=== PATIENT | male | born 1960 | race Caucasian/White ===

== ENCOUNTER 2017-08-09 18:02 | Emergency (ER) | payer OTHER ==
[~2017-08-09] VITALS: Ht 172.7 cm; Wt 88.6 kg
[~2017-08-09 18:02] MED LIST: ALPRAZOLAM0.5 MG PO; AMITRIPTYLIN50 MG PO; CEPHALEXIN500 MG PO; COUMADIN3 MG PO; FLEXERIL OR; HYDROCHLOROT12.5 M1 PO; HYDROCO/APAP1 T12 PO; LIPITOR10 MG PO; LIPITOR20 MG OR; LISINOPRIL20 MG PO; LORTAB 10 PO; LORTAB 5 OR; MEDDOSEPAK OR; MIRTAZAPINE15 MG PO; NAPROSYN375 MG PO; NORCO1 TAB OR; PAROXETINE10 MG PO; PAXIL20 MG OR; PAXIL30 MG PO; PAXIL40 MG OR; PERCOCET 5/325M1 TAB OR; PRAVASTATIN40 MG OR; PROAIR HFA IN; RISPERDAL0.5 MG PO; SEROQUEL100 MG PO; SEROQUEL50 MG OR; SOMA350 MG OR; TEGRETOL200 MG PO; ZARONTIN250 MG PO; ZESTRIL20 MG OR
[2017-08-09] MEDS ORDERED: BUPROPION150 M3 PO (18:36)
[2017-08-09] MEDS ORDERED: BUPROPION300 MG PO (18:36)
[2017-08-09] MEDS ORDERED: VISTARIL25 MG PO (18:43)
[2017-08-09] MEDS ORDERED: ZOLPIDEM5 M1 PO (18:44)
[2017-08-09 18:46] LABS: HEMATOCRIT 39.8 % (39.0-50.0); HEMOGLOBIN 13.7 g/dl (14.0-18.0); IMMATURE GRANULOCYTES 0.4 % (0.0-1.0); MEAN CELL VOLUME 91.7 fL CALC (80.0-100.0); MEAN CORPUSCULAR HGB 31.6 pG CALC (26.0-32.0); MEAN CORPUSCULAR HGB CONC 34.4 g/L CALC (32.0-36.0); NEUT# 4.36 thou/uL (1.82-7.42); RED BLOOD COUNT 4.34 mill/uL (4.70-6.10); RED CELL DISTRI WIDTH 12.6 % (11.5-15.5)
[2017-08-09 19:11] LABS: ALBUMIN 4.3 g/dL (3.2-5.0); ALKALINE PHOSPHATASE 88 u/l (38-126); ANION GAP 19 (6-22 (CALC)); BILIRUBIN, TOTAL 0.3 mg/dL (0.0-1.4); BUN 11 mg/dL (9-20); BUN/CREATININE RATIO 10 (12-20 (CALC)); CARBON DIOXIDE 24 mmol/l (22-30); CHLORIDE 103 mmol/l (95-108); CREATININE 1.1 mg/dL (0.7-1.3); GFR > 60 ML/MIN (>=60 (CALC)); GFR FOR AFR.AMER. > 60 ML/MIN (>=60 (CALC)); POTASSIUM 4.2 mmol/l (3.5-5.1); SGOT/AST 20 u/l (17-59); SGPT/ALT 33 u/l (21-72); SODIUM 142 mmol/l (137-146); TOTAL PROTEIN 7.3 g/dL (6.3-8.2)
[2017-08-09 19:49] LABS: URINE BILIRUBIN - DIPSTICK NEGATIVE (NEGATIVE); URINE BLOOD DIPSTICK NEGATIVE (NEGATIVE); URINE CLARITY CLEAR; URINE COLOR YELLOW; URINE GLUCOSE - DIPSTICK NEGATIVE (NEGATIVE); URINE KETONE NEGATIVE (NEGATIVE); URINE LEUK ESTERASE NEGATIVE (Negative); URINE NITRITE - DIPSTICK NEGATIVE (Negative); URINE PROTEIN - DIPSTICK NEGATIVE (NEG-TRACE); URINE SPECIFIC GRAVITY <=1.005; URINE UROBILINOGEN - DIPSTICK 0.2 E.U./dL (0.2)
[2017-08-09 19:59] LABS: BARBITURATES NEGATIVE (NEGATIVE); COCAINE NEGATIVE (NEGATIVE); METHADONE NEGATIVE (NEGATIVE); OXCYCODONE NEGATIVE (NEGATIVE); TETRAHYDROCANNABIONOL POSITIVE (NEGATIVE); TRICYLIC ANTIDEPRESSANTS NEGATIVE (NEGATIVE)
[2017-08-09] MEDS ORDERED: BACTROBAN TOP (20:13)
[2017-08-09 21:20] VITALS: BP 147/93
== END 2017-08-09 21:20 | disposition home or self-care (01) | DRG 101 ==
LOC: ED 18:02
DX: G40.909 Epilepsy, unspecified, not intractable, without status epilepticus (principal); F12.90 Cannabis use, unspecified, uncomplicated
CPT/HCPCS: J1953

== ENCOUNTER 2018-03-17 16:38 | Emergency (ER) | payer OTHER ==
[~2018-03-17] VITALS: Ht 172.7 cm; Wt 80.0 kg
[~2018-03-17 16:38] MED LIST changes: +BACTROBAN TOP; +BUPROPION150 M3 PO; +BUPROPION300 MG PO; +VISTARIL25 MG PO; +ZOLPIDEM5 M1 PO
[2018-03-17 17:35] LABS: HEMATOCRIT 36.4 % (39.0-50.0); HEMOGLOBIN 12.6 g/dl (14.0-18.0); IMMATURE GRANULOCYTES 1.3 % (0.0-5.0); MEAN CELL VOLUME 95.3 fL CALC (80.0-100.0); MEAN CORPUSCULAR HGB CONC 34.6 g/L CALC (32.0-36.0); NEUT# 4.84 thou/uL (1.82-7.42); RED BLOOD COUNT 3.82 mill/uL (4.70-6.10); RED CELL DISTRI WIDTH 15.2 % (11.5-15.5)
[2018-03-17 17:45] LABS: CREATININE 1.5 mg/dL (0.7-1.3); POTASSIUM 3.9 mmol/l (3.5-5.1)
[2018-03-17] MEDS ORDERED: BUPROPION150 M4 PO (17:47)
[2018-03-17] MEDS ORDERED: METHOCARBAMOL500 MG PO (17:49)
[2018-03-17] MEDS ORDERED: LOSARTAN POT25 MG PO (17:51)
[2018-03-17] MEDS ORDERED: HYDROXYZINE HCL10 MG PO (17:51)
[2018-03-17] MEDS ORDERED: NITROSTAT0.4 MG SL (17:52)
[2018-03-17] MEDS ORDERED: TEGRETOL PO (18:27)
[2018-03-17 18:45] VITALS: BP 100/66
[2018-03-18] MEDS ORDERED: LORTAB 5/3255 MG PO (03:56)
== END 2018-03-17 18:45 | disposition home or self-care (01) ==
LOC: ED 16:38
PROVIDERS: Family Medicine
DX: G40.909 Epilepsy, unspecified, not intractable, without status epilepticus (principal); T42.1X6A Underdosing of iminostilbenes, initial encounter; Z91.128 Patient's intentional underdosing of medication regimen for other reason

== ENCOUNTER 2018-03-18 03:06 | Emergency (ER) | payer OTHER ==
[~2018-03-18] VITALS: Ht 172.7 cm; Wt 70.0 kg
[~2018-03-18 03:06] MED LIST changes: +BUPROPION150 M4 PO; +HYDROXYZINE HCL10 MG PO; +LOSARTAN POT25 MG PO; +METHOCARBAMOL500 MG PO; +NITROSTAT0.4 MG SL; +TEGRETOL PO
[2018-03-18] MEDS ORDERED: LORTAB 5/3255 MG PO (03:56)
[2018-03-18 04:43] VITALS: BP 174/102
== END 2018-03-18 05:01 | disposition home or self-care (01) ==
LOC: ED 03:06
DX: G40.909 Epilepsy, unspecified, not intractable, without status epilepticus (principal); S42.291A Other displaced fracture of upper end of right humerus, initial encounter for closed fracture; T42.76XA Underdosing of unspecified antiepileptic and sedative-hypnotic drugs, initial encounter; X58.XXXA Exposure to other specified factors, initial encounter; Z91.128 Patient's intentional underdosing of medication regimen for other reason

== ENCOUNTER → 2018-05-17 | Outpatient (REF) | payer OTHER ==
[~2018-05-17] MED LIST changes: +LORTAB 5/3255 MG PO
== END | disposition home or self-care (01) ==
LOC: DI 10:37
PROVIDERS: ATTEND Family Medicine
DX: J44.0 Chronic obstructive pulmonary disease with (acute) lower respiratory infection (principal)

== ENCOUNTER 2018-12-31 15:40 | Emergency (ER) | payer OTHER ==
[~2018-12-31] VITALS: Ht 172.7 cm; Wt 75.0 kg
[2018-12-31 16:35] LABS: HEMATOCRIT 39.2 % (39.0-50.0); HEMOGLOBIN 13.4 g/dl (14.0-18.0); IMMATURE GRANULOCYTES 0.5 % (0.0-5.0); MEAN CELL VOLUME 90.7 fL CALC (80.0-100.0); MEAN CORPUSCULAR HGB CONC 34.2 g/L CALC (32.0-36.0); NEUT# 6.76 thou/uL (1.82-7.42); RED BLOOD COUNT 4.32 mill/uL (4.70-6.10); RED CELL DISTRI WIDTH 13.8 % (11.5-15.5)
[2018-12-31 17:24] LABS: ALKALINE PHOSPHATASE 104 u/l (38-126); ANION GAP 23 (6-22 (CALC)); BILIRUBIN, TOTAL 0.4 mg/dL (0.0-1.4); BUN 7 mg/dL (9-20); BUN/CREATININE RATIO 7 (12-20 (CALC)); CARBON DIOXIDE 21 mmol/l (22-30); CHLORIDE 100 mmol/l (95-108); CREATININE 1.1 mg/dL (0.7-1.3); GFR > 60 ML/MIN (>=60 (CALC)); GFR FOR AFR.AMER. > 60 ML/MIN (>=60 (CALC)); POTASSIUM 4.2 mmol/l (3.5-5.1); SGOT/AST 26 u/l (17-59); SODIUM 139 mmol/l (137-146); TOTAL PROTEIN 8.2 g/dL (6.3-8.2)
[2018-12-31 17:36] LABS: MYOGLOBIN 115 ng/mL (0 - 121)
[2018-12-31 17:36] LABS: URINE BILIRUBIN - DIPSTICK NEGATIVE (NEGATIVE); URINE BLOOD DIPSTICK NEGATIVE (NEGATIVE); URINE COLOR YELLOW; URINE GLUCOSE - DIPSTICK NEGATIVE (NEGATIVE); URINE KETONE NEGATIVE (NEGATIVE); URINE LEUK ESTERASE NEGATIVE (NEGATIVE); URINE NITRITE - DIPSTICK NEGATIVE (Negative); URINE PH 6.5 (4.5-8.0); URINE PROTEIN - DIPSTICK NEGATIVE (NEG-TRACE); URINE SPECIFIC GRAVITY 1.025; URINE UROBILINOGEN - DIPSTICK 0.2 E.U./dL (0.2)
[2018-12-31 18:07] LABS: BARBITURATES NEGATIVE (NEGATIVE); COCAINE NEGATIVE (NEGATIVE); METHADONE NEGATIVE (NEGATIVE); OXCYCODONE NEGATIVE (NEGATIVE); TETRAHYDROCANNABIONOL POSITIVE (NEGATIVE); TRICYLIC ANTIDEPRESSANTS NEGATIVE (NEGATIVE)
[2018-12-31 20:30] VITALS: BP 170/98
== END 2018-12-31 20:30 | disposition home or self-care (01) ==
LOC: ED 15:40
PROVIDERS: Emergency Medicine
DX: G40.909 Epilepsy, unspecified, not intractable, without status epilepticus (principal); I10 Essential (primary) hypertension; J44.9 Chronic obstructive pulmonary disease, unspecified

== ENCOUNTER 2018-12-31 20:42 | Emergency (ER) | payer OTHER ==
[~2018-12-31] VITALS: Ht 172.7 cm; Wt 60.0 kg
[2018-12-31 22:08] LABS: HEMATOCRIT 39.3 % (39.0-50.0); HEMOGLOBIN 13.2 g/dl (14.0-18.0); IMMATURE GRANULOCYTES 0.5 % (0.0-5.0); MEAN CELL VOLUME 93.6 fL CALC (80.0-100.0); MEAN CORPUSCULAR HGB 31.4 pG CALC (26.0-32.0); MEAN CORPUSCULAR HGB CONC 33.6 g/L CALC (32.0-36.0); NEUT# 9.74 thou/uL (1.82-7.42); RED BLOOD COUNT 4.2 mill/uL (4.70-6.10); RED CELL DISTRI WIDTH 14.1 % (11.5-15.5)
[2018-12-31 22:16] LABS: ALBUMIN 4.9 g/dL (3.2-5.0); ALKALINE PHOSPHATASE 92 u/l (38-126); BILIRUBIN, TOTAL 0.4 mg/dL (0.0-1.4); BUN 7 mg/dL (9-20); BUN/CREATININE RATIO 6 (12-20 (CALC)); CHLORIDE 98 mmol/l (95-108); CREATININE 1.2 mg/dL (0.7-1.3); GFR > 60 ML/MIN (>=60 (CALC)); GFR FOR AFR.AMER. > 60 ML/MIN (>=60 (CALC)); POTASSIUM 4.2 mmol/l (3.5-5.1); SGOT/AST 30 u/l (17-59); SODIUM 139 mmol/l (137-146); TOTAL PROTEIN 7.8 g/dL (6.3-8.2)
[2018-12-31 22:18] LABS: ANION GAP 30 (6-22 (CALC)); CARBON DIOXIDE 15 mmol/l (22-30)
[2019-01-01 01:08] VITALS: BP 126/76
== END 2019-01-01 01:08 | disposition short-term general hospital (02) ==
LOC: ED 20:42 → ED-I 21:20 → ED 01-01 01:08
PROVIDERS: Emergency Medicine
DX: G40.909 Epilepsy, unspecified, not intractable, without status epilepticus (principal); R41.82 Altered mental status, unspecified; I10 Essential (primary) hypertension; J44.9 Chronic obstructive pulmonary disease, unspecified
CPT/HCPCS: J1953

== ENCOUNTER 2019-01-05 10:31 | Emergency (ER) | payer OTHER ==
[~2019-01-05] VITALS: Ht 172.7 cm; Wt 82.0 kg
[2019-01-05 11:31] LABS: HEMATOCRIT 39.2 % (39.0-50.0); HEMOGLOBIN 13.3 g/dl (14.0-18.0); IMMATURE GRANULOCYTES 0.4 % (0.0-5.0); MEAN CELL VOLUME 91.6 fL CALC (80.0-100.0); MEAN CORPUSCULAR HGB 31.1 pG CALC (26.0-32.0); MEAN CORPUSCULAR HGB CONC 33.9 g/L CALC (32.0-36.0); NEUT# 2.3 thou/uL (1.82-7.42); RED BLOOD COUNT 4.28 mill/uL (4.70-6.10); RED CELL DISTRI WIDTH 13.7 % (11.5-15.5)
[2019-01-05 11:38] LABS: ALBUMIN 4.6 g/dL (3.2-5.0); ALKALINE PHOSPHATASE 98 u/l (38-126); ANION GAP 16 (6-22 (CALC)); BILIRUBIN, TOTAL 0.5 mg/dL (0.0-1.4); BUN 14 mg/dL (9-20); BUN/CREATININE RATIO 13 (12-20 (CALC)); CHLORIDE 105 mmol/l (95-108); CREATININE 1.1 mg/dL (0.7-1.3); GFR > 60 ML/MIN (>=60 (CALC)); GFR FOR AFR.AMER. > 60 ML/MIN (>=60 (CALC)); SGOT/AST 37 u/l (17-59); SODIUM 142 mmol/l (137-146); TOTAL PROTEIN 7.8 g/dL (6.3-8.2)
[2019-01-05 11:39] LABS: CARBON DIOXIDE 25 mmol/l (22-30)
[2019-01-05] MEDS ORDERED: TORADOL PO (11:51)
[2019-01-05] MEDS ORDERED: LOSARTAN POTAS100 MG PO (11:51)
[2019-01-05 11:56] VITALS: BP 142/99
== END 2019-01-05 12:02 | disposition home or self-care (01) ==
LOC: ED 10:31
PROVIDERS: Family Medicine
DX: R51 Headache (principal); I10 Essential (primary) hypertension; J44.9 Chronic obstructive pulmonary disease, unspecified; G40.909 Epilepsy, unspecified, not intractable, without status epilepticus

== ENCOUNTER 2019-05-02 | Emergency (ER) | payer OTHER ==
[~2019-05-02] MED LIST changes: +LOSARTAN POTAS100 MG PO; +TORADOL PO
[2019-05-02 10:37] LABS: HEMATOCRIT 38.5 % (39.0-50.0); IMMATURE GRANULOCYTES 0.6 % (0.0-5.0); MEAN CELL VOLUME 91.7 fL CALC (80.0-100.0); MEAN CORPUSCULAR HGB CONC 33.8 g/L CALC (32.0-36.0); NEUT# 7.64 thou/uL (1.82-7.42); RED BLOOD COUNT 4.2 mill/uL (4.70-6.10); RED CELL DISTRI WIDTH 13.6 % (11.5-15.5)
[2019-05-02] MEDS ORDERED: ABILIFY15 MG PO (11:17)
[2019-05-02 11:28] LABS: ALBUMIN 4.7 g/dL (3.2-5.0); ALKALINE PHOSPHATASE 96 u/l (38-126); ANION GAP 15 (6-22 (CALC)); BILIRUBIN, TOTAL 0.3 mg/dL (0.0-1.4); BUN 11 mg/dL (9-20); BUN/CREATININE RATIO 10 (12-20 (CALC)); CARBON DIOXIDE 22 mmol/l (22-30); CHLORIDE 106 mmol/l (95-108); CREATININE 1.1 mg/dL (0.7-1.3); GFR > 60 ML/MIN (>=60 (CALC)); GFR FOR AFR.AMER. > 60 ML/MIN (>=60 (CALC)); POTASSIUM 4.6 mmol/l (3.5-5.1); SGOT/AST 32 u/l (17-59); SODIUM 139 mmol/l (137-146); TOTAL PROTEIN 7.9 g/dL (6.3-8.2)
[2019-05-02 12:34] LABS: URINE BILIRUBIN - DIPSTICK NEGATIVE (NEGATIVE); URINE BLOOD DIPSTICK NEGATIVE (NEGATIVE); URINE COLOR YELLOW; URINE GLUCOSE - DIPSTICK NEGATIVE (NEGATIVE); URINE KETONE NEGATIVE (NEGATIVE); URINE LEUK ESTERASE NEGATIVE (NEGATIVE); URINE NITRITE - DIPSTICK NEGATIVE (Negative); URINE PROTEIN - DIPSTICK NEGATIVE (NEG-TRACE); URINE UROBILINOGEN - DIPSTICK 0.2 E.U./dL (0.2)
[2019-05-02 12:38] LABS: BARBITURATES NEGATIVE (NEGATIVE); COCAINE NEGATIVE (NEGATIVE); METHADONE NEGATIVE (NEGATIVE); OXCYCODONE NEGATIVE (NEGATIVE); TETRAHYDROCANNABIONOL POSITIVE (NEGATIVE); TRICYLIC ANTIDEPRESSANTS NEGATIVE (NEGATIVE)
[2019-05-02] MEDS ORDERED: TEGRETOL PO (12:55)
== END 2019-05-02 13:03 | disposition home or self-care (01) ==
PROVIDERS: Emergency Medicine
DX: G40.409 Other generalized epilepsy and epileptic syndromes, not intractable, without status epilepticus (principal); I10 Essential (primary) hypertension; J44.9 Chronic obstructive pulmonary disease, unspecified; T42.76XA Underdosing of unspecified antiepileptic and sedative-hypnotic drugs, initial encounter; Z91.128 Patient's intentional underdosing of medication regimen for other reason

== ENCOUNTER 2020-05-31 11:49 | Emergency (ER) | payer OTHER ==
[~2020-05-31] VITALS: Ht 172.7 cm; Wt 86.4 kg
[~2020-05-31 11:49] MED LIST changes: +ABILIFY15 MG PO
[2020-05-31 13:32] LABS: IMMATURE GRANULOCYTES 0.7 % (0.0-5.0); MEAN CORPUSCULAR HGB 30.7 pG CALC (26.0-32.0); MEAN CORPUSCULAR HGB CONC 33.4 g/dL CAL (32.0-36.0); NEUT# 11.51 thou/uL (1.82-7.42); RED BLOOD COUNT 5.14 mill/uL (4.70-6.10); RED CELL DISTRI WIDTH 12.7 % (11.5-15.5)
[2020-05-31 13:33] LABS: HEMATOCRIT 47.3 % (39.0-50.0); HEMOGLOBIN 15.8 g/dl (14.0-18.0)
[2020-05-31 14:00] LABS: ALKALINE PHOSPHATASE 95 u/l (38-126); ANION GAP 22 (6-22 (CALC)); BUN 11 mg/dL (9-20); BUN/CREATININE RATIO 8 (12-20 (CALC)); CARBON DIOXIDE 20 mmol/l (22-30); CHLORIDE 95 mmol/l (95-108); CREATININE 1.4 mg/dL (0.7-1.3); ETHYL ALCOHOL 0 mg/dl (0-30); GFR 52 ML/MIN (>=60 (CALC)); GFR FOR AFR.AMER. > 60 ML/MIN (>=60 (CALC)); LIPASE 64 u/l (23-300); POTASSIUM 4.4 mmol/l (3.5-5.1); SGOT/AST 45 u/l (17-59); SODIUM 133 mmol/l (137-146)
[2020-05-31 14:02] LABS: BILIRUBIN, TOTAL 0.8 mg/dL (0.0-1.4); TOTAL PROTEIN 9.6 g/dL (6.3-8.2)
[2020-05-31 14:03] LABS: ALBUMIN 5.7 g/dL (3.2-5.0)
[2020-05-31 14:55] LABS: URINE BILIRUBIN - DIPSTICK NEGATIVE (NEGATIVE); URINE BLOOD DIPSTICK NEGATIVE (NEGATIVE); URINE COLOR YELLOW; URINE GLUCOSE - DIPSTICK NEGATIVE (NEGATIVE); URINE KETONE NEGATIVE (NEGATIVE); URINE LEUK ESTERASE NEGATIVE (NEGATIVE); URINE PH 6.5 (4.5-8.0); URINE PROTEIN - DIPSTICK NEGATIVE (NEG-TRACE); URINE UROBILINOGEN - DIPSTICK 0.2 E.U./dL (0.2)
[2020-05-31 14:57] LABS: URINE NITRITE - DIPSTICK NEGATIVE (Negative)
[2020-05-31 16:58] VITALS: BP 126/61
== END 2020-05-31 16:59 | disposition short-term general hospital (02) ==
LOC: ED 11:49
PROVIDERS: Family Medicine
DX: G40.909 Epilepsy, unspecified, not intractable, without status epilepticus (principal); J44.1 Chronic obstructive pulmonary disease with (acute) exacerbation; E87.2 Acidosis; I10 Essential (primary) hypertension; F32.9 Major depressive disorder, single episode, unspecified; F41.9 Anxiety disorder, unspecified; Z20.822 Contact with and (suspected) exposure to COVID-19

== ENCOUNTER 2020-07-07 | Emergency (ER) | payer OTHER ==
[2020-07-07 16:14] LABS: MEAN CELL VOLUME 94.9 fL CALC (80.0-100.0); MEAN CORPUSCULAR HGB CONC 31.6 g/dL CAL (32.0-36.0); NEUT# 10.3 thou/uL (1.82-7.42); RED BLOOD COUNT 4.3 mill/uL (4.70-6.10); RED CELL DISTRI WIDTH 12.7 % (11.5-15.5); URINE BILIRUBIN - DIPSTICK NEGATIVE (NEGATIVE); URINE BLOOD DIPSTICK SMALL (NEGATIVE); URINE COLOR YELLOW; URINE GLUCOSE - DIPSTICK NEGATIVE (NEGATIVE); URINE KETONE NEGATIVE (NEGATIVE); URINE LEUK ESTERASE NEGATIVE (NEGATIVE); URINE PH 6.5 (4.5-8.0); URINE PROTEIN - DIPSTICK 100 mg/dL (NEG-TRACE); URINE SPECIFIC GRAVITY 1.025; URINE UROBILINOGEN - DIPSTICK 0.2 E.U./dL (0.2)
[2020-07-07 16:16] LABS: HEMATOCRIT 40.8 % (39.0-50.0); HEMOGLOBIN 12.9 g/dl (14.0-18.0)
[2020-07-07 16:17] LABS: IMMATURE GRANULOCYTES 6.7 % (0.0-5.0); URINE NITRITE - DIPSTICK NEGATIVE (Negative)
[2020-07-07 16:23] LABS: URINE RBC 0-2 RBC/hpf (0-5); URINE SPERM FEW hpf (NONE-RARE); URINE WBC 0-2 WBC/hpf (0-5)
[2020-07-07 16:34] LABS: BILIRUBIN, TOTAL 0.5 mg/dL (0.0-1.4); CREATININE 1.8 mg/dL (0.7-1.3); POTASSIUM 4.4 mmol/l (3.5-5.1)
[2020-07-07 16:35] LABS: ALBUMIN 4.3 g/dL (3.2-5.0); TOTAL PROTEIN 6.9 g/dL (6.3-8.2)
--- NOTE | 2020-07-09 13:36 | NUR ---
Patient's microbiological blood culture reports from 07/07/20 were faxed over to [facility] @ .
--- NOTE | 2020-07-10 15:35 | NUR ---
FAXED OVER FINAL BLOOD CULTURE REPORT TO [facility] AT [facility]. FAX # [phone].
== END 2020-07-07 18:05 | disposition short-term general hospital (02) ==
PROVIDERS: Emergency Medicine
DX: G40.919 Epilepsy, unspecified, intractable, without status epilepticus (principal); E87.2 Acidosis; I10 Essential (primary) hypertension; J44.9 Chronic obstructive pulmonary disease, unspecified; F32.9 Major depressive disorder, single episode, unspecified; F41.9 Anxiety disorder, unspecified; Z20.822 Contact with and (suspected) exposure to COVID-19
CPT/HCPCS: J1953; J2060

== ENCOUNTER 2020-12-26 14:44 | Emergency (ER) | payer OTHER ==
[~2020-12-26] VITALS: Ht 172.7 cm; Wt 71.8 kg
[2020-12-26] MEDS ORDERED: MIRTAZAPINE15 MG PO (15:13)
[2020-12-26] MEDS ORDERED: PRAVASTATIN20 MG PO (15:13)
[2020-12-26] MEDS ORDERED: RISPERIDONE2 MG PO (15:14)
[2020-12-26 15:15] LABS: HEMATOCRIT 41.6 % (39.0-50.0); HEMOGLOBIN 13.9 g/dl (14.0-18.0); IMMATURE GRANULOCYTES 0.1 % (0.0-5.0); MEAN CELL VOLUME 94.8 fL CALC (80.0-100.0); MEAN CORPUSCULAR HGB 31.7 pG CALC (26.0-32.0); MEAN CORPUSCULAR HGB CONC 33.4 g/dL CAL (32.0-36.0); NEUT# 5.22 thou/uL (1.82-7.42); RED BLOOD COUNT 4.39 mill/uL (4.70-6.10); RED CELL DISTRI WIDTH 13.5 % (11.5-15.5)
[2020-12-26] MEDS ORDERED: CARBAMAZEPIN200 MG PO (15:15)
[2020-12-26] MEDS ORDERED: SEROQUEL100 MG PO (15:16)
[2020-12-26] MEDS ORDERED: HYDROXYZ HCL25 MG PO (15:17)
[2020-12-26 15:27] LABS: URINE BILIRUBIN - DIPSTICK NEGATIVE (NEGATIVE); URINE BLOOD DIPSTICK NEGATIVE (NEGATIVE); URINE CLARITY CLEAR; URINE COLOR YELLOW; URINE GLUCOSE - DIPSTICK NEGATIVE (NEGATIVE); URINE KETONE NEGATIVE (NEGATIVE); URINE LEUK ESTERASE NEGATIVE (Negative); URINE NITRITE - DIPSTICK NEGATIVE (Negative); URINE PH 6.5 (4.5-8.0); URINE PROTEIN - DIPSTICK TRACE mg/dL (NEG-TRACE); URINE SPECIFIC GRAVITY 1.025; URINE UROBILINOGEN - DIPSTICK 0.2 E.U./dL (0.2)
[2020-12-26 15:28] LABS: ALBUMIN 4.2 g/dL (3.2-5.0); ALKALINE PHOSPHATASE 93 u/l (38-126); ANION GAP 22 (6-22 (CALC)); BILIRUBIN, TOTAL 0.5 mg/dL (0.0-1.4); BUN 11 mg/dL (9-20); BUN/CREATININE RATIO 10 (12-20 (CALC)); CARBON DIOXIDE 17 mmol/l (22-30); CHLORIDE 103 mmol/l (95-108); CREATININE 1.1 mg/dL (0.7-1.3); GFR > 60 ML/MIN (>=60 (CALC)); GFR FOR AFR.AMER. > 60 ML/MIN (>=60 (CALC)); SGOT/AST 29 u/l (17-59); SODIUM 138 mmol/l (137-146); TOTAL PROTEIN 7.5 g/dL (6.3-8.2)
[2020-12-26 15:35] LABS: POTASSIUM 3.7 mmol/l (3.5-5.1)
[2020-12-26 17:18] VITALS: BP 135/79
[2020-12-26] MEDS ORDERED: CARBAMAZEPIN200 M1 PO (17:20)
== END 2020-12-26 17:35 | disposition home or self-care (01) ==
LOC: ED 14:44
DX: G40.409 Other generalized epilepsy and epileptic syndromes, not intractable, without status epilepticus (principal); T42.1X6A Underdosing of iminostilbenes, initial encounter; I10 Essential (primary) hypertension; J44.9 Chronic obstructive pulmonary disease, unspecified; F32.A Depression, unspecified; F41.9 Anxiety disorder, unspecified; M54.50 Low back pain, unspecified; M54.2 Cervicalgia; G89.29 Other chronic pain; F17.200 Nicotine dependence, unspecified, uncomplicated; Z91.138 Patient's unintentional underdosing of medication regimen for other reason

== ENCOUNTER 2021-02-26 13:31 | Emergency (ER) | payer MEDICAID ==
[~2021-02-26] VITALS: Ht 172.7 cm; Wt 68.0 kg
[~2021-02-26 13:31] MED LIST changes: +CARBAMAZEPIN200 M1 PO; +CARBAMAZEPIN200 MG PO; +HYDROXYZ HCL25 MG PO; +PRAVASTATIN20 MG PO; +RISPERIDONE2 MG PO
[2021-02-26 14:09] LABS: HEMATOCRIT 41.6 % (39.0-50.0); HEMOGLOBIN 14.4 g/dl (14.0-18.0); IMMATURE GRANULOCYTES 0.4 % (0.0-5.0); MEAN CELL VOLUME 90.8 fL CALC (80.0-100.0); MEAN CORPUSCULAR HGB 31.4 pG CALC (26.0-32.0); MEAN CORPUSCULAR HGB CONC 34.6 g/dL CAL (32.0-36.0); NEUT# 5.95 thou/uL (1.82-7.42); RED BLOOD COUNT 4.58 mill/uL (4.70-6.10); RED CELL DISTRI WIDTH 13.2 % (11.5-15.5)
[2021-02-26 14:28] LABS: ALBUMIN 4.3 g/dL (3.2-5.0); ALKALINE PHOSPHATASE 99 u/l (38-126); ANION GAP 17 (6-22 (CALC)); BILIRUBIN, TOTAL 0.6 mg/dL (0.0-1.4); BUN 10 mg/dL (9-20); BUN/CREATININE RATIO 10 (12-20 (CALC)); CARBON DIOXIDE 22 mmol/l (22-30); CHLORIDE 106 mmol/l (95-108); GFR > 60 ML/MIN (>=60 (CALC)); GFR FOR AFR.AMER. > 60 ML/MIN (>=60 (CALC)); POTASSIUM 3.6 mmol/l (3.5-5.1); SGOT/AST 32 u/l (17-59); SODIUM 141 mmol/l (137-146); TOTAL PROTEIN 7.9 g/dL (6.3-8.2)
[2021-02-26 15:44] VITALS: BP 153/78
== END 2021-02-26 15:44 | disposition home or self-care (01) ==
LOC: ED 13:31
PROVIDERS: Family Medicine
DX: G40.909 Epilepsy, unspecified, not intractable, without status epilepticus (principal); I10 Essential (primary) hypertension; J44.9 Chronic obstructive pulmonary disease, unspecified; F32.A Depression, unspecified; F41.9 Anxiety disorder, unspecified; F17.200 Nicotine dependence, unspecified, uncomplicated

== ENCOUNTER 2021-08-12 20:24 | Emergency (ER) | payer MEDICAID ==
[~2021-08-12] VITALS: Ht 172.7 cm; Wt 95.4 kg
[2021-08-12] VITALS (7 sets, daily range): BP systolic 125–158; BP diastolic 75–107
[2021-08-12] MEDS ORDERED: BUPROPN HCL300 MG PO (20:36)
[2021-08-12] MEDS ORDERED: VALPROIC ACD250 M3 PO (20:36)
[2021-08-12] MEDS ORDERED: MIRTAZAPINE45 M1 PO (20:37)
[2021-08-12] MEDS ORDERED: ABILIFY MYCITE15 M2 PO (20:37)
[2021-08-12 20:55] LABS: HEMATOCRIT 43.8 % (39.0-50.0); HEMOGLOBIN 14.8 g/dl (14.0-18.0); IMMATURE GRANULOCYTES 0.2 % (0.0-5.0); MEAN CELL VOLUME 95.2 fL CALC (80.0-100.0); MEAN CORPUSCULAR HGB 32.2 pG CALC (26.0-32.0); MEAN CORPUSCULAR HGB CONC 33.8 g/dL CAL (32.0-36.0); NEUT# 8.18 thou/uL (1.82-7.42); RED BLOOD COUNT 4.6 mill/uL (4.70-6.10); RED CELL DISTRI WIDTH 12.7 % (11.5-15.5)
[2021-08-12 21:12] LABS: ALBUMIN 4.7 g/dL (3.2-5.0); ALKALINE PHOSPHATASE 117 u/l (38-126); ANION GAP 24 (6-22 (CALC)); BUN 9 mg/dL (9-20); BUN/CREATININE RATIO 7 (12-20 (CALC)); CARBON DIOXIDE 18 mmol/l (22-30); CHLORIDE 102 mmol/l (95-108); CREATININE 1.2 mg/dL (0.7-1.3); GFR FOR AFR.AMER. > 60 ML/MIN (>=60 (CALC)); GFR OTHER RACES > 60 ML/MIN (>=60 (CALC)); SODIUM 140 mmol/l (137-146); TOTAL PROTEIN 8.2 g/dL (6.3-8.2)
[2021-08-12 21:20] LABS: BILIRUBIN, TOTAL 0.3 mg/dL (0.0-1.4); SGOT/AST 60 u/l (17-59)
[2021-08-12 21:23] LABS: MYOGLOBIN 104 ng/mL (0 - 121)
[2021-08-12 22:57] LABS: URINE BILIRUBIN - DIPSTICK NEGATIVE (NEGATIVE); URINE BLOOD DIPSTICK TRACE-INTACT (NEGATIVE); URINE COLOR YELLOW; URINE GLUCOSE - DIPSTICK NEGATIVE (NEGATIVE); URINE KETONE NEGATIVE (NEGATIVE); URINE LEUK ESTERASE NEGATIVE (NEGATIVE); URINE PROTEIN - DIPSTICK 30 mg/dL (NEG-TRACE); URINE SPECIFIC GRAVITY >=1.030; URINE UROBILINOGEN - DIPSTICK 0.2 E.U./dL (0.2)
[2021-08-12 23:02] LABS: URINE NITRITE - DIPSTICK NEGATIVE (Negative)
[2021-08-12] MEDS ORDERED: CARBAMAZEPIN200 M1 PO (23:15)
[2021-08-12 23:26] LABS: URINE EPITHELIAL CELLS MODERATE EPI/hpf (0-FEW)
[2021-08-12 23:27] LABS: URINE BACTERIA FEW hpf
[2021-08-13 00:01] VITALS: BP 125/83
== END 2021-08-13 00:02 | disposition home or self-care (01) ==
LOC: ED 20:24
PROVIDERS: Family Medicine
DX: G40.409 Other generalized epilepsy and epileptic syndromes, not intractable, without status epilepticus (principal); I10 Essential (primary) hypertension; J44.9 Chronic obstructive pulmonary disease, unspecified; F32.A Depression, unspecified; F41.9 Anxiety disorder, unspecified

== ENCOUNTER 2021-09-16 08:39 | Emergency (ER) | payer MEDICAID ==
[~2021-09-16] VITALS: Ht 172.7 cm; Wt 71.0 kg
[~2021-09-16 08:39] MED LIST changes: +ABILIFY MYCITE15 M2 PO; +BUPROPN HCL300 MG PO; +MIRTAZAPINE45 M1 PO; +VALPROIC ACD250 M3 PO
[2021-09-16 09:22] LABS: GFR FOR AFR.AMER. > 60 ML/MIN (>=60 (CALC)); GFR OTHER RACES > 60 ML/MIN (>=60 (CALC))
[2021-09-16 09:25] LABS: HEMATOCRIT 42.5 % (39.0-50.0); HEMOGLOBIN 13.8 g/dl (14.0-18.0); IMMATURE GRANULOCYTES 0.7 % (0.0-5.0); MEAN CELL VOLUME 98.2 fL CALC (80.0-100.0); MEAN CORPUSCULAR HGB 31.9 pG CALC (26.0-32.0); MEAN CORPUSCULAR HGB CONC 32.5 g/dL CAL (32.0-36.0); NEUT# 3.67 thou/uL (1.82-7.42); RED BLOOD COUNT 4.33 mill/uL (4.70-6.10); RED CELL DISTRI WIDTH 13.8 % (11.5-15.5)
[2021-09-16 09:31] LABS: URINE BILIRUBIN - DIPSTICK NEGATIVE (NEGATIVE); URINE BLOOD DIPSTICK TRACE-INTACT (NEGATIVE); URINE COLOR YELLOW; URINE GLUCOSE - DIPSTICK NEGATIVE (NEGATIVE); URINE KETONE NEGATIVE (NEGATIVE); URINE LEUK ESTERASE NEGATIVE (NEGATIVE); URINE PH 5.5 (4.5-8.0); URINE PROTEIN - DIPSTICK 30 mg/dL (NEG-TRACE); URINE SPECIFIC GRAVITY >=1.030; URINE UROBILINOGEN - DIPSTICK 0.2 E.U./dL (0.2)
[2021-09-16 09:32] LABS: URINE NITRITE - DIPSTICK NEGATIVE (Negative)
[2021-09-16 09:33] LABS: URINE EPITHELIAL CELLS FEW EPI/hpf (0-FEW); URINE MUCUS MODERATE hpf (NONE-FEW); URINE RBC 0-2 RBC/hpf (0-5)
[2021-09-16 09:56] LABS: ALBUMIN 4.3 g/dL (3.2-5.0); ALKALINE PHOSPHATASE 87 u/l (38-126); ANION GAP 21 (6-22 (CALC)); BILIRUBIN, TOTAL 0.3 mg/dL (0.0-1.4); BUN 8 mg/dL (9-20); BUN/CREATININE RATIO 7 (12-20 (CALC)); CARBON DIOXIDE 19 mmol/l (22-30); CHLORIDE 103 mmol/l (95-108); CREATININE 1.2 mg/dL (0.7-1.3); ETHYL ALCOHOL 0 mg/dl (0-30); GFR FOR AFR.AMER. > 60 ML/MIN (>=60 (CALC)); GFR OTHER RACES > 60 ML/MIN (>=60 (CALC)); LIPASE 63 u/l (23-300); POTASSIUM 3.6 mmol/l (3.5-5.1); SGOT/AST 46 u/l (17-59); SODIUM 139 mmol/l (137-146); TOTAL PROTEIN 7.3 g/dL (6.3-8.2)
[2021-09-16 11:25] VITALS: BP 109/74
== END 2021-09-16 12:11 | disposition left against medical advice (07) ==
LOC: ED 08:39
PROVIDERS: Family Medicine
DX: G40.909 Epilepsy, unspecified, not intractable, without status epilepticus (principal); J06.9 Acute upper respiratory infection, unspecified; I10 Essential (primary) hypertension; J44.9 Chronic obstructive pulmonary disease, unspecified; F32.A Depression, unspecified; I25.2 Old myocardial infarction; F41.9 Anxiety disorder, unspecified; F17.200 Nicotine dependence, unspecified, uncomplicated; Z91.19 Patient's noncompliance with other medical treatment and regimen; Z20.822 Contact with and (suspected) exposure to COVID-19
CPT/HCPCS: J1953; Q9967

== ENCOUNTER 2021-09-26 13:34 | Emergency (ER) | payer MEDICAID ==
[~2021-09-26] VITALS: Ht 172.7 cm; Wt 80.0 kg
[2021-09-26 14:33] LABS: HEMATOCRIT 48.3 % (39.0-50.0); HEMOGLOBIN 15.4 g/dl (14.0-18.0); IMMATURE GRANULOCYTES 0.5 % (0.0-5.0); MEAN CELL VOLUME 100.4 fL CALC (80.0-100.0); MEAN CORPUSCULAR HGB CONC 31.9 g/dL CAL (32.0-36.0); NEUT# 10.57 thou/uL (1.82-7.42); RED BLOOD COUNT 4.81 mill/uL (4.70-6.10); RED CELL DISTRI WIDTH 14.4 % (11.5-15.5)
[2021-09-26 14:48] LABS: ALKALINE PHOSPHATASE 96 u/l (38-126); ANION GAP 28 (6-22 (CALC)); BILIRUBIN, TOTAL 0.4 mg/dL (0.0-1.4); BUN 7 mg/dL (9-20); BUN/CREATININE RATIO 5 (12-20 (CALC)); CHLORIDE 105 mmol/l (95-108); CREATININE 1.4 mg/dL (0.7-1.3); GFR FOR AFR.AMER. > 60 ML/MIN (>=60 (CALC)); GFR OTHER RACES 52 ML/MIN (>=60 (CALC)); POTASSIUM 4.1 mmol/l (3.5-5.1); SGOT/AST 48 u/l (17-59); SODIUM 142 mmol/l (137-146); TOTAL PROTEIN 8.4 g/dL (6.3-8.2)
[2021-09-26 14:56] LABS: CARBON DIOXIDE 13 mmol/l (22-30)
[2021-09-26 19:02] VITALS: BP 138/78
== END 2021-09-26 19:04 | disposition home or self-care (01) ==
LOC: ED 13:34
PROVIDERS: Family Medicine
DX: G40.909 Epilepsy, unspecified, not intractable, without status epilepticus (principal); I10 Essential (primary) hypertension; J44.9 Chronic obstructive pulmonary disease, unspecified; F41.9 Anxiety disorder, unspecified; F32.A Depression, unspecified; F17.200 Nicotine dependence, unspecified, uncomplicated
CPT/HCPCS: J1953

== ENCOUNTER 2021-11-22 16:35 | Emergency (ER) | payer MEDICAID ==
[~2021-11-22] VITALS: Ht 177.8 cm; Wt 68.0 kg
[2021-11-22 17:01] LABS: HEMATOCRIT 44.7 % (39.0-50.0); HEMOGLOBIN 15.3 g/dl (14.0-18.0); IMMATURE GRANULOCYTES 0.1 % (0.0-5.0); MEAN CORPUSCULAR HGB 31.8 pG CALC (26.0-32.0); MEAN CORPUSCULAR HGB CONC 34.2 g/dL CAL (32.0-36.0); RED BLOOD COUNT 4.81 mill/uL (4.70-6.10); RED CELL DISTRI WIDTH 12.9 % (11.5-15.5)
[2021-11-22 17:04] LABS: MEAN CELL VOLUME 92.9 fL CALC (80.0-100.0)
[2021-11-22 17:27] LABS: ALBUMIN 4.8 g/dL (3.2-5.0); ALKALINE PHOSPHATASE 79 u/l (38-126); BUN 11 mg/dL (8-23); BUN/CREATININE RATIO 10 (12-20 (CALC)); CHLORIDE 102 mmol/l (95-108); CPK 93 u/l (52-200); CREATININE 1.1 mg/dL (0.7-1.3); ETHYL ALCOHOL 0 mg/dl (0-30); GFR FOR AFR.AMER. > 60 ML/MIN (>=60 (CALC)); GFR OTHER RACES > 60 ML/MIN (>=60 (CALC)); LIPASE 52 u/l (23-300); MAGNESIUM 2.1 mg/dL (1.6-2.3); POTASSIUM 4.6 mmol/l (3.5-5.1); SGOT/AST 46 u/l (19-48); SODIUM 139 mmol/l (137-146); TOTAL PROTEIN 8.1 g/dL (6.3-8.2)
[2021-11-22 17:28] LABS: ANION GAP 22 (6-22 (CALC)); BILIRUBIN, TOTAL 0.7 mg/dL (0.0-1.4); CARBON DIOXIDE 20 mmol/l (22-30)
[2021-11-22 17:31] LABS: URINE BLOOD DIPSTICK NEGATIVE (NEGATIVE); URINE COLOR YELLOW; URINE GLUCOSE - DIPSTICK NEGATIVE (NEGATIVE); URINE KETONE 15 mg/dL (NEGATIVE); URINE LEUK ESTERASE NEGATIVE (NEGATIVE); URINE PROTEIN - DIPSTICK 30 mg/dL (NEG-TRACE); URINE SPECIFIC GRAVITY 1.025
[2021-11-22 17:32] LABS: URINE BILIRUBIN - DIPSTICK SMALL (NEGATIVE); URINE NITRITE - DIPSTICK NEGATIVE (Negative)
[2021-11-22 17:35] LABS: URINE AMORPH SEDIMENT FEW hpf (NONE-FER); URINE RBC 0-2 RBC/hpf (0-5); URINE WBC 0-2 WBC/hpf (0-5)
[2021-11-22 18:01] VITALS: BP 191/115
[2021-11-22 18:07] VITALS: BP 183/122
[2021-11-22 18:11] VITALS: BP 167/115
== END 2021-11-22 18:36 | disposition home or self-care (01) ==
LOC: ED 16:35
PROVIDERS: Internal Medicine
DX: G40.909 Epilepsy, unspecified, not intractable, without status epilepticus (principal); I10 Essential (primary) hypertension; J44.9 Chronic obstructive pulmonary disease, unspecified; F32.A Depression, unspecified; F41.9 Anxiety disorder, unspecified; F17.200 Nicotine dependence, unspecified, uncomplicated
CPT/HCPCS: J1953

== ENCOUNTER 2021-12-08 12:32 | Emergency (ER) | payer MEDICAID ==
[~2021-12-08] VITALS: Ht 177.8 cm; Wt 79.5 kg
[2021-12-08 13:13] LABS: HEMATOCRIT 42.4 % (39.0-50.0); IMMATURE GRANULOCYTES 0.6 % (0.0-5.0); MEAN CELL VOLUME 95.3 fL CALC (80.0-100.0); MEAN CORPUSCULAR HGB 31.5 pG CALC (26.0-32.0); NEUT# 4.33 thou/uL (1.82-7.42); RED BLOOD COUNT 4.45 mill/uL (4.70-6.10); RED CELL DISTRI WIDTH 12.6 % (11.5-15.5)
[2021-12-08 13:45] LABS: ALBUMIN 4.4 g/dL (3.2-5.0); ALKALINE PHOSPHATASE 91 u/l (38-126); BUN 10 mg/dL (8-23); BUN/CREATININE RATIO 8 (12-20 (CALC)); CHLORIDE 105 mmol/l (95-108); CREATININE 1.4 mg/dL (0.7-1.3); GFR FOR AFR.AMER. > 60 ML/MIN (>=60 (CALC)); GFR OTHER RACES 52 ML/MIN (>=60 (CALC)); POTASSIUM 4.2 mmol/l (3.5-5.1); SGOT/AST 63 u/l (19-48); SODIUM 140 mmol/l (137-146); TOTAL PROTEIN 7.4 g/dL (6.3-8.2)
[2021-12-08 13:46] LABS: ANION GAP 28 (6-22 (CALC)); BILIRUBIN, TOTAL 0.3 mg/dL (0.0-1.4); CARBON DIOXIDE 11 mmol/l (22-30)
[2021-12-08] MEDS ORDERED: VOLTAREN1%GEL TOP (15:28)
[2021-12-08 15:44] VITALS: BP 129/87
== END 2021-12-08 15:45 | disposition home or self-care (01) ==
LOC: ED 12:32
PROVIDERS: Family Medicine
DX: G40.909 Epilepsy, unspecified, not intractable, without status epilepticus (principal); M25.562 Pain in left knee; I10 Essential (primary) hypertension; J44.9 Chronic obstructive pulmonary disease, unspecified; M54.50 Low back pain, unspecified; F32.A Depression, unspecified; F41.9 Anxiety disorder, unspecified; F17.200 Nicotine dependence, unspecified, uncomplicated

== ENCOUNTER 2021-12-23 10:50 | Emergency (ER) | payer MEDICAID ==
[~2021-12-23] VITALS: Ht 177.8 cm; Wt 77.0 kg
[~2021-12-23 10:50] MED LIST changes: +VOLTAREN1%GEL TOP
[2021-12-23 11:50] LABS: ALBUMIN 4.4 g/dL (3.2-5.0); ALKALINE PHOSPHATASE 78 u/l (38-126); ANION GAP 27 (6-22 (CALC)); BILIRUBIN, TOTAL 0.4 mg/dL (0.0-1.4); BUN 9 mg/dL (8-23); BUN/CREATININE RATIO 7 (12-20 (CALC)); CHLORIDE 103 mmol/l (95-108); CREATININE 1.3 mg/dL (0.7-1.3); ETHYL ALCOHOL 0 mg/dl (0-30); GFR FOR AFR.AMER. > 60 ML/MIN (>=60 (CALC)); GFR OTHER RACES 56 ML/MIN (>=60 (CALC)); POTASSIUM 4.9 mmol/l (3.5-5.1); SGOT/AST 38 u/l (19-48); SODIUM 140 mmol/l (137-146); TOTAL PROTEIN 7.1 g/dL (6.3-8.2)
[2021-12-23 12:15] LABS: CARBON DIOXIDE 15 mmol/l (22-30)
[2021-12-23 12:26] LABS: HEMATOCRIT 39.1 % (39.0-50.0); HEMOGLOBIN 13.1 g/dl (14.0-18.0); IMMATURE GRANULOCYTES 0.7 % (0.0-5.0); MEAN CELL VOLUME 94.4 fL CALC (80.0-100.0); MEAN CORPUSCULAR HGB 31.6 pG CALC (26.0-32.0); MEAN CORPUSCULAR HGB CONC 33.5 g/dL CAL (32.0-36.0); NEUT# 10.29 thou/uL (1.82-7.42); RED BLOOD COUNT 4.14 mill/uL (4.70-6.10); RED CELL DISTRI WIDTH 13.4 % (11.5-15.5)
[2021-12-23] MEDS ORDERED: CARBAMAZEPIN200 MG PO (14:59)
[2021-12-23 15:42] VITALS: BP 160/80
== END 2021-12-23 15:44 | disposition home or self-care (01) ==
LOC: ED 10:50
PROVIDERS: Emergency Medicine
DX: G40.409 Other generalized epilepsy and epileptic syndromes, not intractable, without status epilepticus (principal); I10 Essential (primary) hypertension; J44.9 Chronic obstructive pulmonary disease, unspecified; F32.A Depression, unspecified; F41.9 Anxiety disorder, unspecified
CPT/HCPCS: J2060

== ENCOUNTER 2022-01-20 16:05 | Inpatient (IN) | payer MEDICAID ==
[2022-01-20] VITALS (17 sets, daily range): BP systolic 124–156; BP diastolic 92–108
[~2022-01-20] VITALS: Ht 177.8 cm; Wt 77.0 kg
--- NOTE | 2022-01-20 16:05 | NUR ---
PT TO ROOM VIA EMS
[2022-01-20 16:43] LABS: HEMATOCRIT 37.5 % (39.0-50.0); HEMOGLOBIN 12.4 g/dl (14.0-18.0); IMMATURE GRANULOCYTES 0.5 % (0.0-5.0); MEAN CELL VOLUME 97.4 fL CALC (80.0-100.0); MEAN CORPUSCULAR HGB 32.2 pG CALC (26.0-32.0); MEAN CORPUSCULAR HGB CONC 33.1 g/dL CAL (32.0-36.0); NEUT# 2.81 thou/uL (1.82-7.42); RED BLOOD COUNT 3.85 mill/uL (4.70-6.10); RED CELL DISTRI WIDTH 14.3 % (11.5-15.5)
[2022-01-20 16:51] LABS: ALBUMIN 3.9 g/dL (3.2-5.0); ALKALINE PHOSPHATASE 75 u/l (38-126); BILIRUBIN, TOTAL 0.3 mg/dL (0.0-1.4); BUN 10 mg/dL (8-23); BUN/CREATININE RATIO 10 (12-20 (CALC)); CHLORIDE 104 mmol/l (95-108); CPK 175 u/l (52-200); GFR FOR AFR.AMER. > 60 ML/MIN (>=60 (CALC)); GFR OTHER RACES > 60 ML/MIN (>=60 (CALC)); LIPASE 37 u/l (23-300); MAGNESIUM 1.9 mg/dL (1.6-2.3); POTASSIUM 4.3 mmol/l (3.5-5.1); SGOT/AST 52 u/l (19-48); SODIUM 138 mmol/l (137-146); TOTAL PROTEIN 6.6 g/dL (6.3-8.2)
[2022-01-20 16:59] LABS: ANION GAP 10 (6-22 (CALC)); CARBON DIOXIDE 28 mmol/l (22-30)
--- NOTE | 2022-01-20 17:18 | NUR ---
URINE SPEC COLLECTED SENT TO LAB. PT ADVISED OF WAIT TIME. SIG OTHER AT [facility].
[2022-01-20 17:22] LABS: TSH, 3RD GENERATION 4.29 uIU/mL (0.47 - 4.68)
[2022-01-20 17:44] LABS: URINE BILIRUBIN - DIPSTICK NEGATIVE (NEGATIVE); URINE BLOOD DIPSTICK NEGATIVE (NEGATIVE); URINE COLOR YELLOW; URINE GLUCOSE - DIPSTICK NEGATIVE (NEGATIVE); URINE KETONE NEGATIVE (NEGATIVE); URINE LEUK ESTERASE NEGATIVE (NEGATIVE); URINE PH 6.5 (4.5-8.0); URINE PROTEIN - DIPSTICK NEGATIVE (NEG-TRACE); URINE SPECIFIC GRAVITY 1.025
[2022-01-20 17:47] LABS: URINE NITRITE - DIPSTICK NEGATIVE (Negative)
--- NOTE | 2022-01-20 18:13 | NUR ---
Reassessment of patient completed. No distress noted.
--- NOTE | 2022-01-20 20:03 | NUR ---
RECEIVED PT TO ICU ROOM 5 FROM ER. PT ACCOMPANIED BY MELA MADDEN. REPORT RECEIVED. PT AWAKE. AMBULATED TO BED WITH ASSIST. TACHYCARDIA NOTED 114 ON ARRIVAL TO 120'S WITH AMBULATION. WILL MONITOR CLOSELY.
--- NOTE | 2022-01-20 21:10 | NUR ---
SEIZURE PRECAUTIONS IN USE. PT IMPULSIVED. PT REMOVED IV - CATH INTACT. BLEEDING CONTROLLED. PT REMINDED TO USE CALL LIGHT FOR ASSISTANCE. PT USED URINAL WITH ASSIST. PT ORIENTED TO PERSON AND PLACE. REPORTS YEAR 2002. PT REORIENTED. WILL CONTINUE WITH PLAN OF CARE.
--- NOTE | 2022-01-20 22:05 | NUR ---
PT AGITATED AND IMPULSIVE. ATIVAN GIVEN ORDERED. FALL PRECAUTIONS IN USE. GIRLFRIEND, PARAMJIT SALGADO, CALLED - INFORMED OF VISITING HOURS. CONTACT NUMBER FOR Fanta SALGADO - [phone].
[2022-01-21] VITALS (47 sets, daily range): BP systolic 41–169; BP diastolic 15–125
--- NOTE | 2022-01-21 00:05 | NUR ---
PT REMAINS AGITATED. PT FREQUENTLY OOB. PT FREQUENTLY REORIENTED. EMOTIONAL SUPPORT PROVIDED. PT WITH VISUAL HALLUCINATIONS. PT WITH INTERMITTENT SHORTNESS OF BREATH AND AUDIBLE WHEEZE WITH AGITATION. TACHYCARDIA AND ELEVATED BP NOTED. CALL PLACED TO DR. NASCIMENTO. PHYSICIAN INFORMED OF PT STATUS AND CURRENT VITAL SIGNS. NEW ORDER RECEIVED. PER PHYSICIAN - PLAN TO TREAT AGITATION AND HALLUCINATION AND MONITOR RESPONSE OF HR, RESP STATUS, AND BP. WILL CONTINUE WITH PLAN OF CARE.
--- NOTE | 2022-01-21 01:00 | NUR ---
PT CONTINUES WITH AGITATION AND HALLUCINATIONS. PT FREQUENTLY REMOVING MONITOR LEADS, OXYGEN, AND PULSE OX. PT POINTING TO AND SPEAKING TO "SOMEONE IN MY ROOM." REST ENCOURAGED.
--- NOTE | 2022-01-21 02:00 | NUR ---
PT REMAINS AWAKE. C/O HUNGER. MEAL PROVIDED. PT OOB TO BSC. NO BM NOTED. WARM BLANKET PROVIDED.
[2022-01-21 03:12] LABS: HEMATOCRIT 38.6 % (39.0-50.0); HEMOGLOBIN 12.4 g/dl (14.0-18.0); IMMATURE GRANULOCYTES 0.3 % (0.0-5.0); MEAN CELL VOLUME 98.2 fL CALC (80.0-100.0); MEAN CORPUSCULAR HGB 31.6 pG CALC (26.0-32.0); MEAN CORPUSCULAR HGB CONC 32.1 g/dL CAL (32.0-36.0); NEUT# 3.43 thou/uL (1.82-7.42); RED BLOOD COUNT 3.93 mill/uL (4.70-6.10); RED CELL DISTRI WIDTH 14.7 % (11.5-15.5)
[2022-01-21 03:26] LABS: ALBUMIN 3.7 g/dL (3.2-5.0); ALKALINE PHOSPHATASE 63 u/l (38-126); ANION GAP 13 (6-22 (CALC)); BILIRUBIN, TOTAL 0.2 mg/dL (0.0-1.4); BUN 7 mg/dL (8-23); BUN/CREATININE RATIO 8 (12-20 (CALC)); CARBON DIOXIDE 25 mmol/l (22-30); CHLORIDE 109 mmol/l (95-108); CREATININE 0.9 mg/dL (0.7-1.3); GFR FOR AFR.AMER. > 60 ML/MIN (>=60 (CALC)); GFR OTHER RACES > 60 ML/MIN (>=60 (CALC)); MAGNESIUM 1.7 mg/dL (1.6-2.3); POTASSIUM 4.7 mmol/l (3.5-5.1); SGOT/AST 27 u/l (19-48); SODIUM 142 mmol/l (137-146); TOTAL PROTEIN 6.3 g/dL (6.3-8.2)
--- NOTE | 2022-01-21 03:50 | NUR ---
PT RESTING WITH EYES CLOSED. RESP EVEN AND UNLABORED. BREATH SOUNDS CLEAR. PT CONTINUES WITH TACHYCARDIA AND ELEVATED BP. PHYSICIAN NOTIFIED. NEW ORDER RECEIVED.
--- NOTE | 2022-01-21 05:49 | NUR ---
PT AGITATED - ATTEMPTING TO GET OUT OF BED AND REMOVING PULSE OX AND 02. ATIVAN GIVEN PER PRN ORDER.
--- NOTE | 2022-01-21 06:24 | NUR ---
RT CALLED TO BEDSIDE. PT WITH SOB AFTER AGITATION AND ATTEMPTING TO GET OUT OF BED. ABDOMINAL BREATHING AND EXP WHEEZING NOTED. RT AT BEDSIDE TO ASSESS. PT ENCOURAGED TO REST AND DEEP BREATHE. PLAN TO REASSESS IN 30 MIN. CONT MONITOR IN USE.
--- NOTE | 2022-01-21 06:53 | NUR ---
REPORT GIVEN MELA VASQUEZ. PT REMAINS IMPULSIVE. OOB REMOVING MONITOR WIRES. PT ASSISTED BACK TO BED. PT BECOMES SOB WITH EXERSION. IV DRSG CHANGED. PT RESTING IN BED AT THIS TIME.
--- NOTE | 2022-01-21 08:00 | NUR ---
PT IS IMPULSIVE, CONFUSED, NOT FOLLOWING DIRECTIONS WELL. CONSTANT REDIRECTION NOT SUCCESSFUL.
--- NOTE | 2022-01-21 13:50 | NUR ---
PT SEEN BY DR IRVING, PSYCHOLOGIST, BY [facility]. PT REMAINS CONFUSED, EASILY REDIRECTED FOR A SHORT TIME. GIRLFRIEND PARAMJIT GRETA, SAYS THAT PT IS NOT AT ALL LIKE THIS NORMALLY.
--- NOTE | 2022-01-21 16:27 | NUR ---
PT PROVIDED ATIVAN FOR RESTLESSNESS, SEEN AT REST IN THE BED IN NO DISTRESS. HR REMAINS IN THE 120-130 RANGE.
--- NOTE | 2022-01-21 20:00 | NUR ---
PT COMPLETED DISORIENTED. ALERT ONLY TO SELF. FOUND TO BE HALUCINATING. PT EASILY REDIRECTED DURING INITIAL ASSESSMENT. PT AMBULATED TO THE RESTROOM WITH STANDBY ASSISTANC. AGREED TO GO BACK TO BED. PT DOES NOT LOOK TO BE IN ANY DISTRESS AT THIS TIME. HR ELEVATED, BUT PT IS AWAKE AND HAVING HARD TIME SETTLING DOWN.
--- NOTE | 2022-01-21 20:15 | NUR ---
PT REQUIRING A SITTING, GETTING OUT OF BED AND HALLUCINATING. RECEIVED ORDER FOR SITTING FROM .
--- NOTE | 2022-01-21 21:00 | NUR ---
CONTACTED , PT REQUIRING RESTRAINTS AT THIS TIME. RECEIVED ORDER TO START RESTRAINTS. ALSO RECEIVED AN ORDER TO GIVE A ONE TIME DOSE OF HALODOL 0.5 IV PUSH. PTS LOST HIS SECOND IV, STARTED A THIRD IV.
--- NOTE | 2022-01-21 21:30 | NUR ---
RECEIVED ORDER FROM TO GET AN EKG. PT MAY REQUIRE XYPREXA IF BEHAVIOR DOES NOT IMPROVE.
--- NOTE | 2022-01-21 22:00 | NUR ---
SHIFT REASSESSMENT - PT HIGHTLY AGGITATED AND DIFFICULT TO REDIRECT. PRN DOSE OF ATIVAN GIVEN, AND NO CHANGE IN PTS BEHAVIOR. CONTACTED AND RECEIVED ORDER FOR AN ADDITIONAL DOSE OF ATIVAN, BUT FREQUENCY OF ATIVAN CHANGED TO Q4H PRN. PT LOST FIRST IV, PLACED A SECOND IV.
[2022-01-22] VITALS (89 sets, daily range): BP systolic 76–163; BP diastolic 52–124
--- NOTE | 2022-01-22 | NUR ---
SHIFT REASSESSMENT - PT FINALLY RESTING. SHOWING NO SIGNS OF DISTRESS. SAFETY PRECAUTIONS IN PLACE. PT BEING CLOSELY MONITORED.
--- NOTE | 2022-01-22 02:00 | NUR ---
SHIFT REASSESSMENT - NO CHANGE IN PT STATUS SINCE PREVIOUS ASSESSMENT.
--- NOTE | 2022-01-22 04:00 | NUR ---
SHIFT REASSESSMENT - PT TACHYCARDIC IN THE 140'S AND SUSTAINING IN A FLUTTER. CONTACTED REGARDING INCREASE IN HR. RECEIVED ORDER TO GIVE BOLUS OF CARDIZEM, START CARDIZEM DRIP, AND TO INCREASE LOVENOX 1MG/KG AND TO BID, THIS IS INCASE PT CONVERTS AND POSSIBLY CLOTS.
--- NOTE | 2022-01-22 06:00 | NUR ---
SHIFT REASSESSMENT - PT ON CARDIZEM DRIP. PTS HR DOES IMPROVE WHEN HE IS NOT AWAKE AND RESTLESS. WHILE ASLEEP PTS HR IS IN THE LOW 100'S.
[2022-01-22 07:45] LABS: MEAN CELL VOLUME 96.5 fL CALC (80.0-100.0); MEAN CORPUSCULAR HGB 32.6 pG CALC (26.0-32.0); MEAN CORPUSCULAR HGB CONC 33.8 g/dL CAL (32.0-36.0); RED BLOOD COUNT 4.87 mill/uL (4.70-6.10); RED CELL DISTRI WIDTH 14.7 % (11.5-15.5)
[2022-01-22 07:49] LABS: HEMOGLOBIN 15.9 g/dl (14.0-18.0)
[2022-01-22 08:00] LABS: BUN 11 mg/dL (8-23); BUN/CREATININE RATIO 12 (12-20 (CALC)); CHLORIDE 107 mmol/l (95-108); CREATININE 0.9 mg/dL (0.7-1.3); GFR FOR AFR.AMER. > 60 ML/MIN (>=60 (CALC)); GFR OTHER RACES > 60 ML/MIN (>=60 (CALC)); MAGNESIUM 1.9 mg/dL (1.6-2.3); SGOT/AST 41 u/l (19-48); SODIUM 140 mmol/l (137-146)
--- NOTE | 2022-01-22 08:00 | NUR ---
PT SEEN ALERT, ORIENTED X 1-2, RESTLESS. PT DOES NOT FOLLOW DIRECTIONS, IS OFTEN TRYING TO GET OOB, PULLING AT TUBES. BILATERAL WRIST RESTRAINTS APPROPRIATELY PREVENT DISTURBING TUBES.
[2022-01-22 08:01] LABS: ANION GAP 19 (6-22 (CALC)); BILIRUBIN, TOTAL 0.7 mg/dL (0.0-1.4); CARBON DIOXIDE 19 mmol/l (22-30); TOTAL PROTEIN 8.9 g/dL (6.3-8.2)
[2022-01-22 08:02] LABS: ALBUMIN 5.2 g/dL (3.2-5.0); ALKALINE PHOSPHATASE 98 u/l (38-126)
--- NOTE | 2022-01-22 10:00 | NUR ---
PT PROVIDED BREAKFAST, ABLE TO FEED HIMSELF WITH MINIMAL DIFFICULTY.
--- NOTE | 2022-01-22 11:16 | NUR ---
O2 SAT ON RA IS 96%
--- NOTE | 2022-01-22 12:00 | NUR ---
PT CONTINUES IMPULSIVE, NEEDING WRIST RESTRAINTS TO KEEP HIM IN THE BED. GIRLFRIEND PARAMJIT CALLS OFTEN FOR PROGRESS CHECK.
--- NOTE | 2022-01-22 16:09 | NUR ---
PT RESTLESS FOR SEVERAL HOURS, NOW AT REST IN THE BED WITH EYES CLOSED.
--- NOTE | 2022-01-22 20:00 | NUR ---
PT DISORIENTED, AND DROWSY. ABLE TO FOLLOW SIMPLE COMMANDS, SUCH TAKING HIS PILLS AND SIPS OF WATER. PT REMAINS ON CARDIZEM DRIP AT 15 MG/HR. VITAL SIGNS ARE WITHIN NORMAL LIMITS.
--- NOTE | 2022-01-22 22:00 | NUR ---
SHIFT REASSESSMENT - PT SLEEPING AT THIS TIME. CARDIZEM DRIP STOPPED DUE TO HYPOTENTION AND IMPROVED HEART RATE. PT REMAINS IN ATRIAL FLUTTER.
[2022-01-23] VITALS (53 sets, daily range): BP systolic 86–162; BP diastolic 58–125
--- NOTE | 2022-01-23 | NUR ---
SHIFT REASSESSMENT - PT COMPLETED DISORIENTED, HIGHLY AGGITATED. ATIVAN GIVEN. PT RESTING COMFORTABLY AT THIS TIME. VITAL SIGNS ARE WITHIN NORMAL LIMITS. PT REMAINS OFF OF CARDIZEM DRIP.
--- NOTE | 2022-01-23 02:00 | NUR ---
SHIFT REASSESSMENT - PT RESTING ON AND OFF. NO SIGNS OF DISTRESS AT THIS TIME. VITAL SIGNS WITHIN NORMAL LIMITS.
--- NOTE | 2022-01-23 04:00 | NUR ---
SHIFT REASSESSMENT - NO CHANGE IN PT STATUS SINCE PREVIOUS ASSESSMENT. VITAL SIGNS ARE WITHIN NORMAL LIMITS. PT DOES NOT LOOK TO BE IN ANY DISTRESS.
[2022-01-23 05:52] LABS: HEMATOCRIT 41.3 % (39.0-50.0); MEAN CELL VOLUME 95.6 fL CALC (80.0-100.0); MEAN CORPUSCULAR HGB 32.4 pG CALC (26.0-32.0); MEAN CORPUSCULAR HGB CONC 33.9 g/dL CAL (32.0-36.0); RED BLOOD COUNT 4.32 mill/uL (4.70-6.10); RED CELL DISTRI WIDTH 14.4 % (11.5-15.5)
[2022-01-23 06:36] LABS: ANION GAP 19 (6-22 (CALC)); BUN 13 mg/dL (8-23); BUN/CREATININE RATIO 15 (12-20 (CALC)); CARBON DIOXIDE 22 mmol/l (22-30); CHLORIDE 105 mmol/l (95-108); CREATININE 0.8 mg/dL (0.7-1.3); GFR FOR AFR.AMER. > 60 ML/MIN (>=60 (CALC)); GFR OTHER RACES > 60 ML/MIN (>=60 (CALC)); MAGNESIUM 1.8 mg/dL (1.6-2.3); POTASSIUM 4.7 mmol/l (3.5-5.1); SODIUM 141 mmol/l (137-146)
--- NOTE | 2022-01-23 08:30 | NUR ---
Patient is resting in bed. Bilateral wrist restraints in place, safety check completed. Oriented to place and self. Voices no complaints at this time. Repositions independently. NAD. ST 121. Dr. Garcia at bedside at the time of this note.
--- NOTE | 2022-01-23 09:23 | NUR ---
Patient restraints removed for nursing care and breakfast. Sitting in bed, appropriate conversation. Feeding self at this time. C/o pain and requesting Tylenol. contacted. NAD. Medicated per orders for HR/BP.
--- NOTE | 2022-01-23 10:10 | NUR ---
Patient resting in bed. Continues eating breakfast. NAD. Appropriate conversation, but needs frequent reorientation to equipment purposes and activity restrictions.
--- NOTE | 2022-01-23 12:09 | NUR ---
Patient sleeping at this time. HR remains elevated, remaining VS WNL on 2L NC. IV saline locked. S/w patient's girlfriend x2 and allowed her to speak with the patient as well. NAD.
--- NOTE | 2022-01-23 14:32 | NUR ---
Patient continues to rest comfortably in bed. Arouses easily, requires reorientation, is alert ot self and city/state, and returns to sleep. In NAD.
--- NOTE | 2022-01-23 16:15 | NUR ---
Patient remains in bed, side-lying, resting comfortably. Continuous monitoring in place. In NAD. Easily arousable but resistant to care after awakening. AAOx2.
--- NOTE | 2022-01-23 18:06 | NUR ---
Patient restless in bed, c/o generalized aches. Able to make needs known, follows commands, remains AAOx2. Stood at bedside x3, walked in place, and patient back to bed with additional pillows, clean top linen, and dinner tray prepared to eat. Medicated for pain and anxiety per orders. Saftey precautions in place, bed alarm set and in lowest position.
--- NOTE | 2022-01-23 18:44 | NUR ---
Report given to MELA Olmedo at this time. Patient resting in bed. Bed alarm set, side rails up. HR 130, RR 15 -- metoprolol due at 2100.
--- NOTE | 2022-01-23 20:00 | NUR ---
PT LETHARGIC, BUT ABLE TO FOLLOW SIMPLE COMMANDS. PT WAS ABOUT TO STAND UP AND ABULATE WITH ONE PERSON ASSIST TO THE RESTROOM AND RETURNED BACK TO BED. BED BATH COMPLETED, LINEN CHANGED, PT LOOKS TO BE RESTING COMFORTABLY. VITAL SIGNS ARE WITHIN NORMAL LIMITS. SAFETY PRECAUTIONS ARE IN PLACE.
--- NOTE | 2022-01-23 22:00 | NUR ---
SHIFT REASSESSMENT - PT TOOKS HIS ORAL MEDICATIONS AND DRANK SOME WATER. HE DOES NOT LOOK TO BE IN ANY DISTRESS. PT WENT BACK TO SLEEP. SAFETY PRECAUTIONS ARE IN PLACE.
[2022-01-24] VITALS (41 sets, daily range): BP systolic 78–171; BP diastolic 48–121
--- NOTE | 2022-01-24 | NUR ---
SHIFT REASSESSMENT - PT WOKE UP LOOKS TO BE AGGITATED. OFFERED WATER AND TOILETING. PT HIGHLY RESTLESS. GAVE PT PO ATIVAN. PT OFFERED WATER. STARTED PT ON IV FLUIDS PER PHYSICIAN ORDERS. VITAL SIGNS ARE WITHIN NORMAL LIMITS. SAFETY PRECAUTIONS ARE IN PLACE.
--- NOTE | 2022-01-24 02:00 | NUR ---
SHIFT REASSESSMENT - NO CHANGE IN PT STATUS SINCE PREVIOUS ASSESSMENT.
--- NOTE | 2022-01-24 04:00 | NUR ---
SHIFT REASSESSMENT - PT FOLLOWING COMMANDS. LOOKS TO BE FAR LESS RESTLESS. MOST EPISODES OF AGGITATION LOOK TO BE WHILE HE IS IN WHAT LOOKS LIKE A DEEP SLEEP.
[2022-01-24 05:12] LABS: HEMATOCRIT 40.3 % (39.0-50.0); HEMOGLOBIN 13.8 g/dl (14.0-18.0); MEAN CELL VOLUME 95.7 fL CALC (80.0-100.0); MEAN CORPUSCULAR HGB 32.8 pG CALC (26.0-32.0); MEAN CORPUSCULAR HGB CONC 34.2 g/dL CAL (32.0-36.0); RED BLOOD COUNT 4.21 mill/uL (4.70-6.10); RED CELL DISTRI WIDTH 14.4 % (11.5-15.5)
[2022-01-24 05:34] LABS: ALKALINE PHOSPHATASE 76 u/l (38-126); ANION GAP 14 (6-22 (CALC)); BILIRUBIN, TOTAL 0.5 mg/dL (0.0-1.4); BUN 18 mg/dL (8-23); BUN/CREATININE RATIO 19 (12-20 (CALC)); CARBON DIOXIDE 26 mmol/l (22-30); CHLORIDE 104 mmol/l (95-108); CREATININE 0.9 mg/dL (0.7-1.3); GFR FOR AFR.AMER. > 60 ML/MIN (>=60 (CALC)); GFR OTHER RACES > 60 ML/MIN (>=60 (CALC)); MAGNESIUM 1.8 mg/dL (1.6-2.3); POTASSIUM 4.3 mmol/l (3.5-5.1); SGOT/AST 41 u/l (19-48); SODIUM 139 mmol/l (137-146)
--- NOTE | 2022-01-24 06:00 | NUR ---
SHIFT REASSESSMENT - NO CHANGE IN PT STATUS AT THIS TIME. PT RESTING COMFORTABLY IN BED. SAFETY PRECAUTIONS IN PLACE.
[2022-01-24 06:12] LABS: ALBUMIN 3.9 g/dL (3.2-5.0)
--- NOTE | 2022-01-24 10:04 | NUR ---
PT TO BEDSIDE COMMODE, UNSTEADY GATE, ASSISTANCE OF 1
--- NOTE | 2022-01-24 10:26 | NUR ---
O2 SAT ON RA IS 95%
--- NOTE | 2022-01-24 20:26 | NUR ---
patient OOB, sitting in the chair. No complain of pain nor distress. Repeatedly expressed desire to go home
--- NOTE | 2022-01-24 22:02 | NUR ---
Patient skeeping in bed. Not in distress.
[2022-01-25] VITALS (24 sets, daily range): BP systolic 78–126; BP diastolic 50–94
--- NOTE | 2022-01-25 02:10 | NUR ---
Patient asslep in bed. Not in distrress. Cardizem titrated to off. BP 85/50.
--- NOTE | 2022-01-25 04:22 | NUR ---
paitent asleep in bed. NO distress noted.
--- NOTE | 2022-01-25 06:04 | NUR ---
patient awake in bed comfortable, no distress noted.
--- NOTE | 2022-01-25 06:05 | NUR ---
patient awake in bed, void with no problem
[2022-01-25 07:04] LABS: HEMATOCRIT 39.6 % (39.0-50.0); HEMOGLOBIN 13.4 g/dl (14.0-18.0); MEAN CELL VOLUME 95.7 fL CALC (80.0-100.0); MEAN CORPUSCULAR HGB 32.4 pG CALC (26.0-32.0); MEAN CORPUSCULAR HGB CONC 33.8 g/dL CAL (32.0-36.0); RED BLOOD COUNT 4.14 mill/uL (4.70-6.10); RED CELL DISTRI WIDTH 14.5 % (11.5-15.5)
[2022-01-25 07:27] LABS: ANION GAP 15 (6-22 (CALC)); BUN 21 mg/dL (8-23); BUN/CREATININE RATIO 21 (12-20 (CALC)); CARBON DIOXIDE 24 mmol/l (22-30); CHLORIDE 105 mmol/l (95-108); GFR FOR AFR.AMER. > 60 ML/MIN (>=60 (CALC)); GFR OTHER RACES > 60 ML/MIN (>=60 (CALC)); MAGNESIUM 1.7 mg/dL (1.6-2.3); POTASSIUM 4.7 mmol/l (3.5-5.1); SODIUM 139 mmol/l (137-146)
--- NOTE | 2022-01-25 08:46 | NUR ---
O2 SAT ON RA IS 96%
--- NOTE | 2022-01-25 10:00 | NUR ---
ASSESSMENT COMPLETE, PATIENT A/OX3, ON CARDIZEM GTT FOR AFIB, HR 120s-130s. ALL OTHER VITAL SIGNS WNL. DENIES PAIN/DISTRESS. CARDIZEM TITRATED TO 10 MG/HR. ALL SAFETY MEASURES IN PLACE. CALL BUTTON AND PERSONAL BELONGINGS IN REACH.
--- NOTE | 2022-01-25 10:00 | NUR ---
TACHYCARDIA REMAINS REFRACTORY TO MD EDD AWARE, NO NEW ORDEERS RECIEVED. ALL NEEDS MET, PATIENT RESTING COMFORTABLY.
--- NOTE | 2022-01-25 12:00 | NUR ---
PATIENT BEDRESTING, AFIB 120S, BP WNL, DENIES DISTRESS
--- NOTE | 2022-01-25 14:00 | NUR ---
PATIENT RESTING COMFORTABLE, NO ACUTE DISTRESS NOTED.
--- NOTE | 2022-01-25 16:00 | NUR ---
ASSESSMENT REMAINS UNCHANGED, ALL NEEDS MET, PATIENT DENIES PAIN/DISTRESS.
--- NOTE | 2022-01-25 22:01 | NUR ---
patient in bed, eye closed. no distress noted.
[2022-01-26] VITALS (25 sets, daily range): BP systolic 80–125; BP diastolic 53–100
--- NOTE | 2022-01-26 00:42 | NUR ---
Patient comfortable in bed. Not in distress.
--- NOTE | 2022-01-26 04:04 | NUR ---
Patient in bed. Asleep. Not in distress. Stable vital signs.
[2022-01-26 05:23] LABS: ANION GAP 12 (6-22 (CALC)); BUN 15 mg/dL (8-23); BUN/CREATININE RATIO 17 (12-20 (CALC)); CARBON DIOXIDE 26 mmol/l (22-30); CHLORIDE 105 mmol/l (95-108); CREATININE 0.9 mg/dL (0.7-1.3); GFR FOR AFR.AMER. > 60 ML/MIN (>=60 (CALC)); GFR OTHER RACES > 60 ML/MIN (>=60 (CALC)); MAGNESIUM 1.7 mg/dL (1.6-2.3); POTASSIUM 3.9 mmol/l (3.5-5.1); SODIUM 139 mmol/l (137-146)
--- NOTE | 2022-01-26 08:18 | NUR ---
Assumed care of patient. Rounded with at bedside. patient states he is feeling much better today. Alert and Oriented to person, place, and time. No complaints of pain. Cardiology consult acknowleged. Will monitor patient closely.
--- NOTE | 2022-01-26 10:00 | NUR ---
Patient resting comfortably in bed with eyes closed. Vitals WNL.
--- NOTE | 2022-01-26 12:00 | NUR ---
Patient with no complaints at this time. New Iv in R AC running Cardizem at 10ml.hr. Patient maintaining HR around 100 bpm waiting on cardiology to assess. Patient consumed 100% of lunch, vitals WNL.
--- NOTE | 2022-01-26 14:00 | NUR ---
Patient resting comfortably in bed, no s/s of distress. Vitals WNL. No complaints of pain. Safety precautions maintained.
--- NOTE | 2022-01-26 16:00 | NUR ---
Patients S/O at bedside. Patient Vitals WnL. Report and Update given to patient and S/O.
--- NOTE | 2022-01-26 16:18 | NUR ---
CARDIOLOGY AT BEDSIDE
--- NOTE | 2022-01-26 19:00 | NUR ---
ASSUMED CARE OF PT. NO S/S OF DISTRESS NOTED. PT SITTING UP IN BED EATING DINNER. DENIES ANY NEEDS.
--- NOTE | 2022-01-26 22:00 | NUR ---
RESTING IN BED. NO S/S OF DISTRESS NOTED
--- NOTE | 2022-01-26 23:43 | NUR ---
PT REQUESTED TO GET UP TO USE BSC. ASSISTED PT WITH BATH AT THIS TIME AND CHANGED LINENS
[2022-01-27] VITALS (29 sets, daily range): BP systolic 76–122; BP diastolic 49–95
--- NOTE | 2022-01-27 02:00 | NUR ---
PT APPEARS TO BE SLEEPING. NO S/S OF DISTRESS NOTED
--- NOTE | 2022-01-27 04:00 | NUR ---
NO S/S OF DISTRESS NOTED.
--- NOTE | 2022-01-27 07:21 | NUR ---
ASSUMED CARE OF PATIENT. PATIENT IS AWAKE AND A&OX4. PATIENT HAS NO COMPLAINTS OF PAIN, PATIENT IS ON RA, VITALS WNL. GOALS AND PLAN REVIEWED WITH PATIENT. SAFETY PRECAUTIONS IN PLACE. TOILETING AND JUICE OFFERED AND ACCEPTED. WILL CONTINUE TO MONITOR.
--- NOTE | 2022-01-27 09:30 | NUR ---
PATIENT RESTING COMFORTABLY IN BED. VITALS WNL. PATIENT NOW OFF OF CARDIZEM DTT.
--- NOTE | 2022-01-27 11:30 | NUR ---
PATIENT ON PHONE WITH S0 AT THIS TIME. VITALS WNL, IV PATENT AND HEALTHY, PATIENT HAS NO COMPLAINTS AT THIS TIME. HR SUSTAINING BETWEEN 100-120. WILL CONTINUE TO MONITOR.
--- NOTE | 2022-01-27 13:30 | NUR ---
NOTIFIED PROVIDER OF PATIENT HR NOW SUSTAINING >130, VERBAL ORDER TO GIVE DIGOXIN IV. WILL MONITOR HR CLOSELY. PATIENT HAS NO COMPLAINTS, NO PAIN, ITEMS WITHIN REACH, SAFETY PRECAUTIONS IN PLACE.
--- NOTE | 2022-01-27 15:30 | NUR ---
PATIENT RESTING IN BED, NO COMLAINTS AT THIS TIME. HR IS SUSTAINING ABOVE 120. WILL NOTIFY DR. BAURE OF SUSTAINED TACHYCARDIA AFTER IV DIG.
--- NOTE | 2022-01-27 19:00 | NUR ---
ASSUMED CARE OF PT, PT NEEDED ASSISTANCE WITH BATH AND LINEN CHANGE DUE TO URINARY INCONTINENCE. MEDICATED PER EMAR FOR AFLUTTER IN 140S. MD ARELLANO
--- NOTE | 2022-01-27 20:00 | NUR ---
PT MEDICATED PER EMAR.
--- NOTE | 2022-01-27 20:51 | NUR ---
MD NOTIFIED OF CONTINUED HR IN 140S AFTER MEDICATION. ADVISED BY MD TO RESTART CARDENE GTT. GTT RESTARTED PER POLICY.
--- NOTE | 2022-01-27 22:30 | NUR ---
PT APPEARS TO HAVE INCREASING DISORIENTATION UPON AWAKING MOST LIKELY DUE TO PRN MEDICATION GIVEN PREVIOUSLY. PT EASILY REDIRECTABLE AND REORIENTABLE.
--- NOTE | 2022-01-27 22:50 | NUR ---
PT DISLODGED IV ATTEMPTING TO GET OUT OF BED TO URINATE. BED ALARM WAS ACTIVE AND PT REMINDED TO USE URINAL. WHILE CARDIZEM GTT WAS PAUSED FOR NEW IV INSERTION PT REMAINED WITH A HR IN THE 140S. PT BP REMAINED STABLE. CARDIZEM GTT RESTARTED WITH NEW IV SITE INSERTION
[2022-01-28] VITALS (38 sets, daily range): BP systolic 92–126; BP diastolic 57–85
--- NOTE | 2022-01-28 | NUR ---
PT RESTING IN BED, ABLE TO COMMUNICATE NEEDS, NO S/S OF DISTRESS NOTED
--- NOTE | 2022-01-28 02:00 | NUR ---
pt appears to be sleeping. no s/s of distress noted
--- NOTE | 2022-01-28 04:05 | NUR ---
PT APPEARS TO BE SLEEPING. VSS, NO S/S OF DISTRESS NOTED
[2022-01-28 05:08] LABS: HEMATOCRIT 39.2 % (39.0-50.0); HEMOGLOBIN 13.4 g/dl (14.0-18.0); MEAN CELL VOLUME 96.1 fL CALC (80.0-100.0); MEAN CORPUSCULAR HGB 32.8 pG CALC (26.0-32.0); MEAN CORPUSCULAR HGB CONC 34.2 g/dL CAL (32.0-36.0); RED BLOOD COUNT 4.08 mill/uL (4.70-6.10); RED CELL DISTRI WIDTH 14.5 % (11.5-15.5)
[2022-01-28 05:24] LABS: ANION GAP 13 (6-22 (CALC)); BUN 14 mg/dL (8-23); BUN/CREATININE RATIO 16 (12-20 (CALC)); CARBON DIOXIDE 25 mmol/l (22-30); CHLORIDE 104 mmol/l (95-108); CREATININE 0.8 mg/dL (0.7-1.3); GFR FOR AFR.AMER. > 60 ML/MIN (>=60 (CALC)); GFR OTHER RACES > 60 ML/MIN (>=60 (CALC)); MAGNESIUM 1.7 mg/dL (1.6-2.3); POTASSIUM 4.4 mmol/l (3.5-5.1); SODIUM 139 mmol/l (137-146)
--- NOTE | 2022-01-28 11:03 | NUR ---
report taken from Og HOLLIS AFTER COMING TO ICU FROM ER. PT RESTING QUIETLY ON BED. VITAL SIGNS STABLE FOR PT. NO DRIPS AT THIS TIME WILL CONTINUE TO MONITER PT.
--- NOTE | 2022-01-28 12:22 | NUR ---
PT EATING LUNCH, NO COMPLAINTS , VERY PLEASANT ATTITUDE AT THIS TIME, VITAL SIGNS STABLE. WILL CONTINUE TO MONITER.
--- NOTE | 2022-01-28 13:24 | NUR ---
FAMILY AT BEDSIDE, VITAL SIGNS STABLE PT HAS NO COMPLAINT.
--- NOTE | 2022-01-28 16:01 | NUR ---
PT ALERT/ORIENTED, JOKING WITH STAFF, DENIES ANY COMPLAINT,, VITAL SIGNS STABLE.
--- NOTE | 2022-01-28 21:15 | NUR ---
Patient HR [address] Ayoub called. Orders taken and carried out.
--- NOTE | 2022-01-28 22:00 | NUR ---
Patient awake in bed, no signs of distress noted.
--- NOTE | 2022-01-28 22:02 | NUR ---
Cardizem 10 mg IV given as ordered. HR 104. Patient comfrotable in bed. No complain of pain. No sign of distress.
[2022-01-29] VITALS (46 sets, daily range): BP systolic 86–122; BP diastolic 51–95
--- NOTE | 2022-01-29 | NUR ---
patient asleep in bed, no distress noted.
--- NOTE | 2022-01-29 04:00 | NUR ---
Patient comfortable in bed. no signs of distress.
[2022-01-29 05:55] LABS: HEMATOCRIT 42.2 % (39.0-50.0); HEMOGLOBIN 14.5 g/dl (14.0-18.0); MEAN CELL VOLUME 95.7 fL CALC (80.0-100.0); MEAN CORPUSCULAR HGB 32.9 pG CALC (26.0-32.0); MEAN CORPUSCULAR HGB CONC 34.4 g/dL CAL (32.0-36.0); RED BLOOD COUNT 4.41 mill/uL (4.70-6.10); RED CELL DISTRI WIDTH 14.3 % (11.5-15.5)
--- NOTE | 2022-01-29 06:00 | NUR ---
Patient comfortable in bed. Medicated for elevated HR -151.
[2022-01-29 06:27] LABS: ANION GAP 13 (6-22 (CALC)); BUN 16 mg/dL (8-23); BUN/CREATININE RATIO 17 (12-20 (CALC)); CARBON DIOXIDE 28 mmol/l (22-30); CHLORIDE 102 mmol/l (95-108); CREATININE 0.9 mg/dL (0.7-1.3); GFR FOR AFR.AMER. > 60 ML/MIN (>=60 (CALC)); GFR OTHER RACES > 60 ML/MIN (>=60 (CALC)); MAGNESIUM 1.9 mg/dL (1.6-2.3); POTASSIUM 4.4 mmol/l (3.5-5.1); SODIUM 139 mmol/l (137-146)
[2022-01-29 06:28] LABS: DIGOXIN < 0.4 ng/mL (0.8-2.0)
--- NOTE | 2022-01-29 14:09 | NUR ---
Patient states that he does not wish to accept any communications from his son Jono Hoover Jr from this point forward.
--- NOTE | 2022-01-29 20:30 | NUR ---
Patient assisted to commode. Had bowel movement.Linens changed. Patient cleaned and put back to bed.
[2022-01-30] VITALS (107 sets, daily range): BP systolic 45–124; BP diastolic 29–93
--- NOTE | 2022-01-30 03:00 | NUR ---
Darin mari tunred off. BP monitored.
--- NOTE | 2022-01-30 04:00 | NUR ---
Patient awake, able to use urinal without assitance. not in distress.
[2022-01-30 05:52] LABS: HEMATOCRIT 40.9 % (39.0-50.0); HEMOGLOBIN 13.9 g/dl (14.0-18.0); MEAN CELL VOLUME 96.5 fL CALC (80.0-100.0); MEAN CORPUSCULAR HGB 32.8 pG CALC (26.0-32.0); RED BLOOD COUNT 4.24 mill/uL (4.70-6.10); RED CELL DISTRI WIDTH 14.3 % (11.5-15.5)
[2022-01-30 06:11] LABS: ANION GAP 15 (6-22 (CALC)); BUN 21 mg/dL (8-23); BUN/CREATININE RATIO 23 (12-20 (CALC)); CARBON DIOXIDE 26 mmol/l (22-30); CHLORIDE 105 mmol/l (95-108); CREATININE 0.9 mg/dL (0.7-1.3); GFR FOR AFR.AMER. > 60 ML/MIN (>=60 (CALC)); GFR OTHER RACES > 60 ML/MIN (>=60 (CALC)); MAGNESIUM 1.9 mg/dL (1.6-2.3); POTASSIUM 4.7 mmol/l (3.5-5.1); SODIUM 140 mmol/l (137-146)
--- NOTE | 2022-01-30 20:15 | NUR ---
PATIENT RESTING IN BED AT THIS TIME. PATIENT ALERT AND ORIENTED X 3. PATIENT REMAINS ON AMIODARONE DRIP AT THIS TIME AT 16.7ML/HR APPLICATION DEVELOPMENT PROJECT MANAGER SHOWING HR 83 AND CONTINUES IN IN A FLUTTER AT THIS TIME. BP IS CURRENTLY 98/67. LUNG HUMMEL ARE CLEAR AND BOWEL SOUNDS PRESENT IN ALL FOUR QUADRANTS. PATIENT IS ON ROOM AIR AT THIS TIME AND SPO2 IS CURRENTLY 90%. SIDERAILS REMAIN PADDED FOR SEIZURE PERCAUTIONS AT THIS TIME. WILL CONTINUE TO MONITOR.
--- NOTE | 2022-01-30 22:08 | NUR ---
PATEINT RESTING IN BED AT THIS TIME. PATIENT DENIES ANY NEEDS CURRENTLY PATIENT REMAINS ON AMIODARONE DRIP AT THIS TIME BP IS CURRENTLY 101/76 CARDIAC MONTIOR SHOWING AFLUTTER AND HR OF 77 WILL CONTINUE TO MONITOR SIDERAILS REMAIN PADDED AND UP X 2
--- NOTE | 2022-01-30 23:57 | NUR ---
PATIENT AWAKE IN BED DENEIS ANY NEEDS AND OR PAIN. PATIENT WHEN ASKED STATE HE FEELS "FINE" AT THIS TIME. PATIENT VOIDED 500MLS OF URINE YELLOW IN COLOR AT THIS TIME. CARDIAC HEART MONITOR SHOWING AFLUTTER AND 74 HR. PATIENT REMAINS ON ROOM AIR AT THIS TIME. AND SPO2 IS CURRENTLY 88% AT THIS TIME.
[2022-01-31] VITALS (90 sets, daily range): BP systolic 70–151; BP diastolic 35–97
--- NOTE | 2022-01-31 04:00 | NUR ---
PATIENT RESTING IN BED AT THIS TIME. PATIENT HEEL LAYER READING AFLUTTER AND HR OF 72 SPO2 IS 90%. NEURO CHECK REMAINS UNCHAGED AND WITHOUT DIFICITS. SIDERAILS ARE UP CALL LIGHT IS WITHIN REACH.
--- NOTE | 2022-01-31 06:10 | NUR ---
PATIENT RESTING IN BED AWAKE DENIES ANY NEEDS AT THIS TIME. RADIOCHEMICAL TECHNICIAN READING HR OF 72 BP IS 105/87 SPO2 IS 91 % ON ROOM AIR. SIDERAILS ARE UP AND PADDED FOR SEIZURE PERCAUTIONS X 2 WILL CONTINUE TO MONITOR.
--- NOTE | 2022-01-31 06:10 | NUR ---
PATIENT CONVERTED BACK TO SINUS RHYTHM AT THIS TIME. HR 74
--- NOTE | 2022-01-31 07:18 | NUR ---
pt awake, AO, denies pain/needs, in sinus rhythm, no SOB
--- NOTE | 2022-01-31 09:34 | NUR ---
pt feeling well, denies needs
[2022-01-31] MEDS ORDERED: SEROQUEL100 MG PO (11:08)
[2022-01-31] MEDS ORDERED: CORDARONE/200 MG/TAB PO (11:09)
--- NOTE | 2022-01-31 11:12 | NUR ---
amiodorone off, pt continues NSR, up out of bed to abulate, pt with 1 assist, somewhat weak, does c/o mild dizziness, now sitting at side of bed, HR did not significantly increase with walking
[2022-01-31 12:15] LABS: BUN 26 mg/dL (8-23); BUN/CREATININE RATIO 26 (12-20 (CALC)); CARBON DIOXIDE 22 mmol/l (22-30); CHLORIDE 102 mmol/l (95-108); GFR FOR AFR.AMER. > 60 ML/MIN (>=60 (CALC)); GFR OTHER RACES > 60 ML/MIN (>=60 (CALC)); SODIUM 139 mmol/l (137-146)
[2022-01-31 12:17] LABS: ANION GAP 21 (6-22 (CALC)); POTASSIUM 5.5 mmol/l (3.5-5.1)
--- NOTE | 2022-01-31 13:39 | NUR ---
pt continues sitting on side of bed, talking to SO now anticipating d/c
--- NOTE | 2022-01-31 16:18 | NUR ---
bilat IV's removed, pt stood at bedside and got self dressed, d/c instructions given, belongings gathered and given to pt who was then taken to cab in , entered van with no assist
[2022-02-01 09:59] VITALS: BP 133/73
[2022-02-01 10:00] VITALS: BP 137/67
[2022-02-01 10:52] VITALS: BP 141/69
== END 2022-01-31 16:20 | disposition home or self-care (01) | DRG 308 ==
LOC: ED 16:05 → ED-I 18:00 → ED 18:45 → ICU 18:46
PROVIDERS: Internal Medicine; ADMIT Internal Medicine; ATTEND Internal Medicine
DX: I48.92 Unspecified atrial flutter (principal); G92.8 Other toxic encephalopathy; J44.1 Chronic obstructive pulmonary disease with (acute) exacerbation; I10 Essential (primary) hypertension; G40.909 Epilepsy, unspecified, not intractable, without status epilepticus; F29 Unspecified psychosis not due to a substance or known physiological condition; G93.89 Other specified disorders of brain; E53.8 Deficiency of other specified B group vitamins; F31.9 Bipolar disorder, unspecified; F41.9 Anxiety disorder, unspecified; F20.9 Schizophrenia, unspecified; Z91.51 Personal history of suicidal behavior; Z78.1 Physical restraint status; Z79.899 Other long term (current) drug therapy
CPT/HCPCS: J0282; J1160; J1650; J2060; J3420; J3475; S0166

== ENCOUNTER 2022-02-21 14:12 | Emergency (ER) | payer MEDICAID ==
[2022-02-21] VITALS (18 sets, daily range): BP systolic 113–140; BP diastolic 74–98
[~2022-02-21] VITALS: Ht 177.8 cm; Wt 79.5 kg
[~2022-02-21 14:12] MED LIST changes: +CORDARONE/200 MG/TAB PO
[2022-02-21 14:51] LABS: HEMATOCRIT 43.5 % (39.0-50.0); HEMOGLOBIN 14.1 g/dl (14.0-18.0); IMMATURE GRANULOCYTES 0.2 % (0.0-5.0); MEAN CELL VOLUME 100.5 fL CALC (80.0-100.0); MEAN CORPUSCULAR HGB 32.6 pG CALC (26.0-32.0); MEAN CORPUSCULAR HGB CONC 32.4 g/dL CAL (32.0-36.0); NEUT# 3.18 thou/uL (1.82-7.42); RED BLOOD COUNT 4.33 mill/uL (4.70-6.10); RED CELL DISTRI WIDTH 13.4 % (11.5-15.5)
[2022-02-21 15:01] LABS: ALBUMIN 4.6 g/dL (3.2-5.0); ALKALINE PHOSPHATASE 92 u/l (38-126); BILIRUBIN, TOTAL 0.4 mg/dL (0.0-1.4); BUN 11 mg/dL (8-23); BUN/CREATININE RATIO 8 (12-20 (CALC)); CHLORIDE 107 mmol/l (95-108); CREATININE 1.3 mg/dL (0.7-1.3); GFR FOR AFR.AMER. > 60 ML/MIN (>=60 (CALC)); GFR OTHER RACES 56 ML/MIN (>=60 (CALC)); POTASSIUM 4.8 mmol/l (3.5-5.1); SODIUM 140 mmol/l (137-146); TOTAL PROTEIN 7.6 g/dL (6.3-8.2)
[2022-02-21 15:03] LABS: ANION GAP 24 (6-22 (CALC)); CARBON DIOXIDE 14 mmol/l (22-30); SGOT/AST 85 u/l (19-48)
== END 2022-02-21 17:47 | disposition left against medical advice (07) ==
LOC: ED
PROVIDERS: Family Medicine
DX: G40.909 Epilepsy, unspecified, not intractable, without status epilepticus (principal); I48.92 Unspecified atrial flutter; I10 Essential (primary) hypertension; J44.9 Chronic obstructive pulmonary disease, unspecified; F32.A Depression, unspecified; F41.9 Anxiety disorder, unspecified; F17.200 Nicotine dependence, unspecified, uncomplicated; Z53.29 Procedure and treatment not carried out because of patient's decision for other reasons

== ENCOUNTER 2022-03-09 07:36 | Inpatient (IN) | payer MEDICAID ==
[~2022-03-09] VITALS: Ht 177.8 cm; Wt 72.0 kg
[2022-03-09] VITALS (128 sets, daily range): BP systolic 67–155; BP diastolic 41–117
[2022-03-09 07:58] LABS: BASO% 0.1 % (0-3); EOS% 0.7 % (0-8); HEMATOCRIT 46.8 % (39.0-50.0); HEMOGLOBIN 15.8 g/dl (14.0-18.0); IMMATURE GRANULOCYTES 0.3 % (0.0-5.0); LYMPH% 20.2 % (15-41); MEAN CELL VOLUME 97.9 fL CALC (80.0-100.0); MEAN CORPUSCULAR HGB 33.1 pG CALC (26.0-32.0); MEAN CORPUSCULAR HGB CONC 33.8 g/dL CAL (32.0-36.0); MONO% 4.5 % (2-13); NEUT# 7.17 thou/uL (1.82-7.42); NEUT% 74.2 % (42-76); RED BLOOD COUNT 4.78 mill/uL (4.70-6.10); RED CELL DISTRI WIDTH 14.2 % (11.5-15.5)
[2022-03-09 08:12] LABS: ALBUMIN 5.2 g/dL (3.2-5.0); ALKALINE PHOSPHATASE 88 u/l (38-126); BILIRUBIN, TOTAL 0.4 mg/dL (0.0-1.4); BUN 9 mg/dL (8-23); BUN/CREATININE RATIO 7 (12-20 (CALC)); CHLORIDE 106 mmol/l (95-108); CREATININE 1.3 mg/dL (0.7-1.3); ETHYL ALCOHOL 0 mg/dl (0-30); GFR FOR AFR.AMER. > 60 ML/MIN (>=60 (CALC)); GFR OTHER RACES 56 ML/MIN (>=60 (CALC)); POTASSIUM 4.5 mmol/l (3.5-5.1); SGOT/AST 46 u/l (19-48); SODIUM 143 mmol/l (137-146); TOTAL PROTEIN 8.2 g/dL (6.3-8.2)
[2022-03-09 08:14] LABS: ANION GAP 25 (6-22 (CALC)); CARBON DIOXIDE 17 mmol/l (22-30)
[2022-03-10] VITALS (62 sets, daily range): BP systolic 87–167; BP diastolic 69–121
[2022-03-10 09:12] LABS: HEMATOCRIT 40.1 % (39.0-50.0); MEAN CORPUSCULAR HGB 33.2 pG CALC (26.0-32.0); MEAN CORPUSCULAR HGB CONC 34.9 g/dL CAL (32.0-36.0); RED BLOOD COUNT 4.22 mill/uL (4.70-6.10)
[2022-03-10] MEDS ORDERED: ARIPIPRAZOLE20 MG PO (09:12)
[2022-03-10 09:41] LABS: ALBUMIN 4.6 g/dL (3.2-5.0); ALKALINE PHOSPHATASE 79 u/l (38-126); BUN 11 mg/dL (8-23); BUN/CREATININE RATIO 11 (12-20 (CALC)); CHLORIDE 105 mmol/l (95-108); GFR FOR AFR.AMER. > 60 ML/MIN (>=60 (CALC)); GFR OTHER RACES > 60 ML/MIN (>=60 (CALC)); MAGNESIUM 1.9 mg/dL (1.6-2.3); POTASSIUM 3.9 mmol/l (3.5-5.1); SGOT/AST 30 u/l (19-48); SODIUM 142 mmol/l (137-146); TOTAL PROTEIN 7.2 g/dL (6.3-8.2)
[2022-03-10 09:47] LABS: ANION GAP 16 (6-22 (CALC)); BILIRUBIN, TOTAL 0.8 mg/dL (0.0-1.4); CARBON DIOXIDE 25 mmol/l (22-30)
[2022-03-11] VITALS (8 sets, daily range): BP systolic 121–153; BP diastolic 87–113
[2022-03-11 06:00] LABS: ANION GAP 12 (6-22 (CALC)); BUN 12 mg/dL (8-23); BUN/CREATININE RATIO 11 (12-20 (CALC)); CARBON DIOXIDE 24 mmol/l (22-30); CHLORIDE 106 mmol/l (95-108); CREATININE 1.1 mg/dL (0.7-1.3); GFR FOR AFR.AMER. > 60 ML/MIN (>=60 (CALC)); GFR OTHER RACES > 60 ML/MIN (>=60 (CALC)); POTASSIUM 3.8 mmol/l (3.5-5.1); SODIUM 139 mmol/l (137-146)
[2022-03-12] VITALS (32 sets, daily range): BP systolic 105–162; BP diastolic 66–126
[2022-03-12 05:57] LABS: ANION GAP 15 (6-22 (CALC)); BUN 16 mg/dL (8-23); BUN/CREATININE RATIO 15 (12-20 (CALC)); CARBON DIOXIDE 24 mmol/l (22-30); CHLORIDE 107 mmol/l (95-108); CREATININE 1.1 mg/dL (0.7-1.3); GFR FOR AFR.AMER. > 60 ML/MIN (>=60 (CALC)); GFR OTHER RACES > 60 ML/MIN (>=60 (CALC)); MAGNESIUM 1.8 mg/dL (1.6-2.3); POTASSIUM 4.2 mmol/l (3.5-5.1); SODIUM 142 mmol/l (137-146)
[2022-03-13] VITALS (40 sets, daily range): BP systolic 85–157; BP diastolic 54–117
[2022-03-13 05:41] LABS: BASO% 0.6 % (0-3); EOS% 3.4 % (0-8); HEMATOCRIT 43.3 % (39.0-50.0); HEMOGLOBIN 15.2 g/dl (14.0-18.0); IMMATURE GRANULOCYTES 0.3 % (0.0-5.0); LYMPH% 37.4 % (15-41); MEAN CORPUSCULAR HGB 33.7 pG CALC (26.0-32.0); MEAN CORPUSCULAR HGB CONC 35.1 g/dL CAL (32.0-36.0); MONO% 7.8 % (2-13); NEUT# 3.41 thou/uL (1.82-7.42); NEUT% 50.5 % (42-76); RED BLOOD COUNT 4.51 mill/uL (4.70-6.10); RED CELL DISTRI WIDTH 13.7 % (11.5-15.5)
[2022-03-13 05:57] LABS: ANION GAP 14 (6-22 (CALC)); BUN 10 mg/dL (8-23); BUN/CREATININE RATIO 10 (12-20 (CALC)); CARBON DIOXIDE 24 mmol/l (22-30); CHLORIDE 107 mmol/l (95-108); GFR FOR AFR.AMER. > 60 ML/MIN (>=60 (CALC)); GFR OTHER RACES > 60 ML/MIN (>=60 (CALC)); MAGNESIUM 1.8 mg/dL (1.6-2.3); POTASSIUM 4.2 mmol/l (3.5-5.1); SODIUM 141 mmol/l (137-146)
[2022-03-14] VITALS (15 sets, daily range): BP systolic 68–133; BP diastolic 32–110
[2022-03-14] MEDS ORDERED: LEVETIRACETAM500 MG PO (10:59)
[2022-03-14] MEDS ORDERED: XARELTO10 MG PO (10:59)
[2022-03-14] MEDS ORDERED: TOPROL XL50 MG PO (11:00)
[2022-03-14] MEDS ORDERED: DILTIAZEM HCL60 MG PO (11:00)
== END 2022-03-14 12:20 | disposition home health service (06) | DRG 309 ==
LOC: ED 07:36 → ED-I 10:40 → ED 11:44 → ICU 11:45
PROVIDERS: Family Medicine; Internal Medicine; ADMIT Internal Medicine; ATTEND Internal Medicine
DX: I48.92 Unspecified atrial flutter (principal); F20.0 Paranoid schizophrenia; G40.909 Epilepsy, unspecified, not intractable, without status epilepticus; I10 Essential (primary) hypertension; J44.9 Chronic obstructive pulmonary disease, unspecified; F32.A Depression, unspecified; F41.9 Anxiety disorder, unspecified; Z79.01 Long term (current) use of anticoagulants
CPT/HCPCS: J0282; J1953

== ENCOUNTER 2022-03-24 10:04 | Emergency (ER) | payer MEDICAID ==
[2022-03-24] VITALS (9 sets, daily range): BP systolic 116–160; BP diastolic 76–113
[~2022-03-24] VITALS: Ht 177.8 cm; Wt 81.8 kg
[~2022-03-24 10:04] MED LIST changes: +ARIPIPRAZOLE20 MG PO; +DILTIAZEM HCL60 MG PO; +LEVETIRACETAM500 MG PO; +TOPROL XL50 MG PO; +XARELTO10 MG PO
[2022-03-24 10:32] LABS: BASO% 0.3 % (0-3); EOS% 2.8 % (0-8); IMMATURE GRANULOCYTES 0.5 % (0.0-5.0); LYMPH% 32.6 % (15-41); MEAN CELL VOLUME 94.8 fL CALC (80.0-100.0); MEAN CORPUSCULAR HGB 33.2 pG CALC (26.0-32.0); MONO% 7.2 % (2-13); NEUT# 3.59 thou/uL (1.82-7.42); NEUT% 56.6 % (42-76); RED BLOOD COUNT 4.22 mill/uL (4.70-6.10); RED CELL DISTRI WIDTH 13.1 % (11.5-15.5)
[2022-03-24 11:00] LABS: ALBUMIN 4.2 g/dL (3.2-5.0); ALKALINE PHOSPHATASE 82 u/l (38-126); ANION GAP 10 (6-22 (CALC)); BILIRUBIN, TOTAL 0.1 mg/dL (0.0-1.4); BUN 13 mg/dL (8-23); BUN/CREATININE RATIO 12 (12-20 (CALC)); CARBON DIOXIDE 27 mmol/l (22-30); CHLORIDE 107 mmol/l (95-108); GFR FOR AFR.AMER. > 60 ML/MIN (>=60 (CALC)); GFR OTHER RACES > 60 ML/MIN (>=60 (CALC)); POTASSIUM 4.1 mmol/l (3.5-5.1); SGOT/AST 43 u/l (19-48); SODIUM 140 mmol/l (137-146); TOTAL PROTEIN 7.3 g/dL (6.3-8.2)
== END 2022-03-24 13:58 | disposition home or self-care (01) ==
LOC: ED 10:04
PROVIDERS: Family Medicine
DX: R07.9 Chest pain, unspecified (principal); I10 Essential (primary) hypertension; G40.909 Epilepsy, unspecified, not intractable, without status epilepticus; J44.9 Chronic obstructive pulmonary disease, unspecified; F41.9 Anxiety disorder, unspecified; F32.A Depression, unspecified

== ENCOUNTER 2022-04-05 01:00 | Observation (INO) | payer MEDICAID ==
[2022-04-05] VITALS (53 sets, daily range): BP systolic 95–206; BP diastolic 66–153
[~2022-04-05] VITALS: Ht 177.8 cm; Wt 79.5 kg
[2022-04-05 02:18] LABS: BASO% 0.2 % (0-3); EOS% 1.9 % (0-8); IMMATURE GRANULOCYTES 0.1 % (0.0-5.0); LYMPH% 22.8 % (15-41); MEAN CELL VOLUME 93.5 fL CALC (80.0-100.0); MEAN CORPUSCULAR HGB 32.3 pG CALC (26.0-32.0); MEAN CORPUSCULAR HGB CONC 34.5 g/dL CAL (32.0-36.0); MONO% 5.6 % (2-13); NEUT# 5.59 thou/uL (1.82-7.42); NEUT% 69.4 % (42-76); RED BLOOD COUNT 4.96 mill/uL (4.70-6.10)
[2022-04-05 02:21] LABS: HEMATOCRIT 46.4 % (39.0-50.0)
[2022-04-05 02:24] LABS: ALKALINE PHOSPHATASE 95 u/l (38-126); ANION GAP 15 (6-22 (CALC)); BUN 12 mg/dL (8-23); BUN/CREATININE RATIO 10 (12-20 (CALC)); CARBON DIOXIDE 29 mmol/l (22-30); CHLORIDE 102 mmol/l (95-108); CREATININE 1.2 mg/dL (0.7-1.3); GFR FOR AFR.AMER. > 60 ML/MIN (>=60 (CALC)); GFR OTHER RACES > 60 ML/MIN (>=60 (CALC)); POTASSIUM 3.8 mmol/l (3.5-5.1); SGOT/AST 32 u/l (19-48); SODIUM 142 mmol/l (137-146)
[2022-04-05 02:27] LABS: ALBUMIN 5.6 g/dL (3.2-5.0); BILIRUBIN, TOTAL 1.1 mg/dL (0.0-1.4); TOTAL PROTEIN 9.3 g/dL (6.3-8.2)
[2022-04-05] MEDS ORDERED: BUPROPION HCL150 MG PO (02:34)
[2022-04-05 02:37] LABS: ETHYL ALCOHOL 0 mg/dl (0-30)
[2022-04-06] VITALS (9 sets, daily range): BP systolic 145–197; BP diastolic 90–112
[2022-04-06] MEDS ORDERED: XARELTO10 MG PO (09:38)
[2022-04-06] MEDS ORDERED: MIRTAZAPINE15 MG PO (09:39)
[2022-04-06 11:02] LABS: BASO% 0.3 % (0-3); EOS% 0.8 % (0-8); HEMATOCRIT 45.8 % (39.0-50.0); HEMOGLOBIN 16.1 g/dl (14.0-18.0); IMMATURE GRANULOCYTES 0.2 % (0.0-5.0); LYMPH% 20.1 % (15-41); MEAN CELL VOLUME 93.5 fL CALC (80.0-100.0); MEAN CORPUSCULAR HGB 32.9 pG CALC (26.0-32.0); MEAN CORPUSCULAR HGB CONC 35.2 g/dL CAL (32.0-36.0); MONO% 7.4 % (2-13); NEUT# 7.6 thou/uL (1.82-7.42); NEUT% 71.2 % (42-76); RED BLOOD COUNT 4.9 mill/uL (4.70-6.10); RED CELL DISTRI WIDTH 13.1 % (11.5-15.5)
[2022-04-06 11:12] LABS: ALBUMIN 5.6 g/dL (3.2-5.0); ALKALINE PHOSPHATASE 91 u/l (38-126); ANION GAP 15 (6-22 (CALC)); BILIRUBIN, TOTAL 0.7 mg/dL (0.0-1.4); BUN 16 mg/dL (8-23); BUN/CREATININE RATIO 15 (12-20 (CALC)); CARBON DIOXIDE 27 mmol/l (22-30); CHLORIDE 102 mmol/l (95-108); CREATININE 1.1 mg/dL (0.7-1.3); GFR FOR AFR.AMER. > 60 ML/MIN (>=60 (CALC)); GFR OTHER RACES > 60 ML/MIN (>=60 (CALC)); POTASSIUM 4.3 mmol/l (3.5-5.1); SGOT/AST 30 u/l (19-48); SODIUM 140 mmol/l (137-146); TOTAL PROTEIN 9.4 g/dL (6.3-8.2)
[2022-04-06] MEDS ORDERED: COZAAR50 MG PO (11:29)
[2022-04-06] MEDS ORDERED: AMLODIPINE BESYL5 MG PO (11:29)
== END 2022-04-06 13:40 ==
LOC: ED 01:00 → ED-I 06:10 → ED 06:31 → MS2 06:32
PROVIDERS: Emergency Medicine; Nurse Practitioner Family; ADMIT Internal Medicine; ATTEND Internal Medicine
DX: I10 Essential (primary) hypertension (principal); F20.9 Schizophrenia, unspecified; I48.91 Unspecified atrial fibrillation; G40.909 Epilepsy, unspecified, not intractable, without status epilepticus; J44.9 Chronic obstructive pulmonary disease, unspecified; F32.A Depression, unspecified; F41.9 Anxiety disorder, unspecified; Z91.14 Patient's other noncompliance with medication regimen; Z20.822 Contact with and (suspected) exposure to COVID-19
CPT/HCPCS: G0378; J1650

== ENCOUNTER 2022-04-12 15:50 | Emergency (ER) | payer MEDICAID ==
[~2022-04-12] VITALS: Ht 177.8 cm; Wt 68.2 kg
[~2022-04-12 15:50] MED LIST changes: +AMLODIPINE BESYL5 MG PO; +BUPROPION HCL150 MG PO; +COZAAR50 MG PO
[2022-04-12 16:30] VITALS: BP 158/94
[2022-04-12 17:00] VITALS: BP 166/100
[2022-04-12 17:30] VITALS: BP 173/110
[2022-04-12 18:02] LABS: BASO% 0.4 % (0-3); EOS% 2.2 % (0-8); HEMATOCRIT 43.8 % (39.0-50.0); HEMOGLOBIN 14.6 g/dl (14.0-18.0); IMMATURE GRANULOCYTES 0.2 % (0.0-5.0); LYMPH% 34.3 % (15-41); MEAN CELL VOLUME 95.6 fL CALC (80.0-100.0); MEAN CORPUSCULAR HGB 31.9 pG CALC (26.0-32.0); MEAN CORPUSCULAR HGB CONC 33.3 g/dL CAL (32.0-36.0); MONO% 6.7 % (2-13); NEUT% 56.2 % (42-76); RED BLOOD COUNT 4.58 mill/uL (4.70-6.10); RED CELL DISTRI WIDTH 13.1 % (11.5-15.5)
[2022-04-12 18:16] LABS: INTERNATIONAL NORMALIZED RATIO 1.1 RATIO (0.7-1.3)
[2022-04-12 18:18] LABS: ALKALINE PHOSPHATASE 86 u/l (38-126); ANION GAP 12 (6-22 (CALC)); BUN 10 mg/dL (8-23); BUN/CREATININE RATIO 9 (12-20 (CALC)); CARBON DIOXIDE 26 mmol/l (22-30); CHLORIDE 106 mmol/l (95-108); CREATININE 1.1 mg/dL (0.7-1.3); ETHYL ALCOHOL 0 mg/dl (0-30); GFR FOR AFR.AMER. > 60 ML/MIN (>=60 (CALC)); GFR OTHER RACES > 60 ML/MIN (>=60 (CALC)); LIPASE 26 u/l (23-300); POTASSIUM 4.1 mmol/l (3.5-5.1); SGOT/AST 26 u/l (19-48); SODIUM 140 mmol/l (137-146); TOTAL PROTEIN 8.4 g/dL (6.3-8.2)
[2022-04-12 18:21] LABS: BILIRUBIN, TOTAL 0.3 mg/dL (0.2-1.3)
[2022-04-12 19:20] VITALS: BP 171/100
[2022-04-12 19:30] VITALS: BP 156/99
[2022-04-12 20:35] LABS: URINE BILIRUBIN - DIPSTICK NEGATIVE (NEGATIVE); URINE BLOOD DIPSTICK NEGATIVE (NEGATIVE); URINE COLOR YELLOW; URINE GLUCOSE - DIPSTICK NEGATIVE (NEGATIVE); URINE KETONE TRACE mg/dL (NEGATIVE); URINE LEUK ESTERASE NEGATIVE (NEGATIVE); URINE PH 6.5 (4.5-8.0); URINE PROTEIN - DIPSTICK NEGATIVE (NEG-TRACE); URINE SPECIFIC GRAVITY >=1.030
[2022-04-12 20:43] LABS: URINE NITRITE - DIPSTICK NEGATIVE (Negative)
[2022-04-12 21:29] VITALS: BP 156/99
== END 2022-04-12 21:23 | disposition home or self-care (01) ==
LOC: ED 15:50
PROVIDERS: Emergency Medicine
DX: R41.82 Altered mental status, unspecified (principal); I10 Essential (primary) hypertension; G40.909 Epilepsy, unspecified, not intractable, without status epilepticus; J44.9 Chronic obstructive pulmonary disease, unspecified; F41.9 Anxiety disorder, unspecified; F32.A Depression, unspecified; I48.92 Unspecified atrial flutter; F20.9 Schizophrenia, unspecified; F17.200 Nicotine dependence, unspecified, uncomplicated

== ENCOUNTER 2022-04-13 10:42 | Emergency (ER) | payer MEDICAID ==
[~2022-04-13] VITALS: Ht 177.8 cm; Wt 77.1 kg
[2022-04-13 11:07] LABS: BASO% 0.4 % (0-3); EOS% 1.8 % (0-8); HEMOGLOBIN 13.9 g/dl (14.0-18.0); IMMATURE GRANULOCYTES 0.2 % (0.0-5.0); LYMPH% 33.8 % (15-41); MEAN CELL VOLUME 94.9 fL CALC (80.0-100.0); MEAN CORPUSCULAR HGB 32.2 pG CALC (26.0-32.0); MEAN CORPUSCULAR HGB CONC 33.9 g/dL CAL (32.0-36.0); MONO% 7.5 % (2-13); NEUT# 2.55 thou/uL (1.82-7.42); NEUT% 56.3 % (42-76); RED BLOOD COUNT 4.32 mill/uL (4.70-6.10)
[2022-04-13 11:44] LABS: ALBUMIN 4.7 g/dL (3.2-5.0); ALKALINE PHOSPHATASE 71 u/l (38-126); ANION GAP 13 (6-22 (CALC)); BUN 10 mg/dL (8-23); BUN/CREATININE RATIO 9 (12-20 (CALC)); CARBON DIOXIDE 23 mmol/l (22-30); CHLORIDE 107 mmol/l (95-108); CREATININE 1.2 mg/dL (0.7-1.3); ETHYL ALCOHOL 0 mg/dl (0-30); GFR FOR AFR.AMER. > 60 ML/MIN (>=60 (CALC)); GFR OTHER RACES > 60 ML/MIN (>=60 (CALC)); POTASSIUM 4.1 mmol/l (3.5-5.1); SGOT/AST 28 u/l (19-48); SODIUM 139 mmol/l (137-146); TOTAL PROTEIN 7.6 g/dL (6.3-8.2)
[2022-04-13 11:46] LABS: BILIRUBIN, TOTAL 0.5 mg/dL (0.2-1.3)
[2022-04-13 13:45] VITALS: BP 125/77
== END 2022-04-13 18:30 | disposition home or self-care (01) ==
LOC: ED 10:42
PROVIDERS: Family Medicine
DX: F12.951 Cannabis use, unspecified with psychotic disorder with hallucinations (principal); I10 Essential (primary) hypertension; G40.909 Epilepsy, unspecified, not intractable, without status epilepticus; J44.9 Chronic obstructive pulmonary disease, unspecified; F41.9 Anxiety disorder, unspecified; F32.A Depression, unspecified; F17.200 Nicotine dependence, unspecified, uncomplicated

== ENCOUNTER 2022-04-13 14:17 | Emergency (ER) | payer MEDICAID ==
[~2022-04-13] VITALS: Ht 177.8 cm; Wt 75.0 kg
[2022-04-13 18:12] VITALS: BP 115/87
== END 2022-04-13 18:00 ==
LOC: ED 14:17
DX: R45.851 Suicidal ideations (principal); F20.9 Schizophrenia, unspecified; I10 Essential (primary) hypertension; G40.909 Epilepsy, unspecified, not intractable, without status epilepticus; J44.9 Chronic obstructive pulmonary disease, unspecified; F32.A Depression, unspecified; F41.9 Anxiety disorder, unspecified; F17.200 Nicotine dependence, unspecified, uncomplicated; R42 Dizziness and giddiness; R44.3 Hallucinations, unspecified; F12.951 Cannabis use, unspecified with psychotic disorder with hallucinations